=== PATIENT | male | born 1945 | race Caucasian/White ===

== ENCOUNTER → 2017-11-29 | Outpatient (CLI) | payer MEDICARE, OTHER | LOC: PLD 14:36 → LAB SHORT 14:36 | DX: D49.2 Neoplasm of unspecified behavior of bone, soft tissue, and skin (principal) | CPT/HCPCS: 88305 ==

== ENCOUNTER 2019-01-20 07:50 | Inpatient (IN) | payer MEDICARE, OTHER ==
[~2019-01-20] VITALS: Ht 180.3 cm; Wt 133.3 kg
[2019-01-20] MEDS ORDERED: ELIQUIS2.5 MG PO (08:11)
[2019-01-20] MEDS ORDERED: ALBU90OI INH (08:12)
[2019-01-20 08:23] LABS: BASOPHILS ABSOLUTE AUTO 0.03 K/mm3 (0.00-0.23); BASOPHILS PERCENT AUTO 0 % (0-2); EOSINOPHILS ABSOLUTE AUTO 0.09 K/mm3 (0.00-0.68); EOSINOPHILS PERCENT AUTO 1 % (0-6); IMMATURE GRAN ABSOLUTE AUTO 0.04 K/mm3 (0.00-0.10); IMMATURE GRAN PERCENT AUTO 0 % (0-1); LYMPHOCYTES ABSOLUTE AUTO 1.27 K/mm3 (0.84-5.20); LYMPHOCYTES PERCENT AUTO 13 % (21-46); MONOCYTES ABSOLUTE AUTO 0.83 K/mm3 (0.16-1.47); MONOCYTES PERCENT AUTO 9 % (4-13); Mean Corpuscular HGB 28.4 pg (26.0-34.0); Mean Corpuscular HGB Conc 29.8 g/dL (31.5-36.5); Mean Corpuscular Volume 95 fL (80-100); NEUTROPHILS ABSOLUTE AUTO 7.22 K/mm3 (1.96-9.15); NEUTROPHILS PERCENT AUTO 76 % (41-73); Platelet Count 141 K/mm3 (150-400); RDW Coefficient Variation 15.5 % (11.7-14.2); RDW Standard Deviation 54.1 fL (35.1-46.3); Red Blood Cell Count 4.93 M/mm3 (4.30-5.90); White Blood Cell Count 9.48 K/mm3 (4.00-11.30)
[2019-01-20 08:46] LABS: Albumin, Blood 3.5 g/dL (3.4-5.0); Albumin/Globulin Ratio 0.9 (0.8-1.8); Bilirubin, Total 0.8 mg/dL (0.1-1.0); Bun/Creatinine Ratio 14.9 (12.0-20.0); Calcium, Blood 8.4 mg/dL (8.5-10.1); Creatinine, Blood 1.48 mg/dL (0.60-1.20); Globulin, Blood 3.9 g/dL (2.2-4.0); Potassium, Blood 4.3 mmol/L (3.5-5.5); Total Protein, Blood 7.4 g/dL (6.4-8.2)
[2019-01-20 08:54] LABS: Troponin I 0.515 ng/mL (0.000-0.040)
[2019-01-20 09:49] LABS: CHOL/HDL RATIO 4.8; Cholesterol 91 mg/dL (50-200); HDL Cholesterol 19 mg/dL (>39); Low Density Lipoprotein Chol 57 mg/dL (0-110); Triglycerides 73 mg/dL (30-160); Very Low Density Lipoprot Chol 14 mg/dL (6-32)
--- NOTE | 2019-01-20 18:24 | NUR ---
ADMISSION ASSESSMENT ASSUMED CARE OF PT AT 1500. PT ARRIVED IN A STRETCHER. WAS ABLE TO STAND PIVOT INTO BED. PT ORIENTATED TO SELF. HX OF MENTAL RETARDATION ACCORDING TO CAREGIVER AT [facility]. PTS LUNG SHOW EXPIRATORY WHEEING IN L LUNG AND CRACKLES AT THE BASES. C/O SOB. 2L O2. ON TELE, AFIB RATE 115 PER MOLD FILLER [employer]. DISTENDED ABDOMEN WITH GENERAL EDEMA. SEVERE EDEMA BLE WITH WEEPING WOUNDS. PT C/O L LEG PAIN. CAPILLARY REFILL MORE THAN 3 SEC ALL EXTREMITIES. STRONG RADIAL AND PEDAL PULSES. INGUINAL AREA SWOLLEN. PT ON A CONTINUOUS DILTIAZAM DRIP. AND RECVEIVED ANTIBIOTICS. PT SITTING IN BED EATING DINNER. HAS A DRY COUGH. SEEN BY NURSE ASSISTANT. CALL LIGHT IN REACH. WILL MONITOR UNTIL NIGHT NURSE ARRIVES.
[2019-01-20] MEDS ORDERED: Fluocinonide15 GM TOP (19:16)
[2019-01-20] MEDS ORDERED: ACET325 PO (19:16)
[2019-01-21 04:10] LABS: BASOPHILS ABSOLUTE AUTO 0.02 K/mm3 (0.00-0.23); BASOPHILS PERCENT AUTO 0 % (0-2); EOSINOPHILS PERCENT AUTO 1 % (0-6); Hematocrit 44.5 % (37.0-53.0); Hemoglobin 13.1 g/dL (13.5-17.5); IMMATURE GRAN ABSOLUTE AUTO 0.05 K/mm3 (0.00-0.10); IMMATURE GRAN PERCENT AUTO 1 % (0-1); LYMPHOCYTES ABSOLUTE AUTO 1.28 K/mm3 (0.84-5.20); LYMPHOCYTES PERCENT AUTO 13 % (21-46); MONOCYTES ABSOLUTE AUTO 0.98 K/mm3 (0.16-1.47); MONOCYTES PERCENT AUTO 10 % (4-13); Mean Corpuscular HGB 28.1 pg (26.0-34.0); Mean Corpuscular HGB Conc 29.4 g/dL (31.5-36.5); Mean Corpuscular Volume 96 fL (80-100); Mean Platelet Volume 11.2 fL (9.1-12.4); NEUTROPHILS ABSOLUTE AUTO 7.81 K/mm3 (1.96-9.15); NEUTROPHILS PERCENT AUTO 76 % (41-73); Platelet Count 118 K/mm3 (150-400); RDW Coefficient Variation 15.2 % (11.7-14.2); RDW Standard Deviation 53.3 fL (35.1-46.3); Red Blood Cell Count 4.66 M/mm3 (4.30-5.90); White Blood Cell Count 10.24 K/mm3 (4.00-11.30)
[2019-01-21 04:24] LABS: Bun/Creatinine Ratio 15.4 (12.0-20.0); Calcium, Blood 8.3 mg/dL (8.5-10.1); Creatinine, Blood 1.75 mg/dL (0.60-1.20); Potassium, Blood 3.4 mmol/L (3.5-5.5)
--- NOTE | 2019-01-21 07:34 | NUR ---
RECEIVED REPORT AND ASSUMED CARE OF PATIENT. HE IS AWAKE, REPOSITIONED WITH REPORTING RN. BED LOCKED IN LOW POSITION, CALL LIGHT WITHIN EASY REACH.
--- NOTE | 2019-01-21 07:35 | NUR ---
SHIFT SUMMARY PATIENT PLEASENT AND COOPERATIVE THROUGHOUT THE NIGHT BUT APPEARS TO BE SLIGHTLY CONFUSED AT TIMES. PATIENT A POOR HISTORIAN. CARDIZEM RUNNING AT 20 MG/HR PER DR ENGLISH. PATIENT'S HEART RATE IS AFIB IN THE 90'S-105 RANGE PER COMPASS OPERATOR. PATIENT DIURESSING WELL THROUGHOUT THE NIGHT. PATIENT TURNED Q2H LAST NIGHT. PATIENT APPEARED TO NAP ON AND OFF LAST NIGHT. PATIENT CURRENTLY AWAKE AND RESTING IN BED. REPORT GIVEN TO ONCOMING RN.
[2019-01-21 14:30] LABS: Calcium, Blood 8.6 mg/dL (8.5-10.1); Creatinine, Blood 1.76 mg/dL (0.60-1.20); Potassium, Blood 3.4 mmol/L (3.5-5.5)
--- NOTE | 2019-01-21 15:24 | NUR ---
TITRATED CARDIZEM DRIP TO 10 ML/HR. RATE BETWEEN 82-86 PER TELE MONITOR.
--- NOTE | 2019-01-21 16:01 | NUR ---
PATIENT IS ASLEEP, DISCUSSED WITH NURSE ABOUT PROVIDING CARE ON 01/22/19 AND SHE STATES SHE DOES NOT SEE HIM HAVING A PROBLEM WITH IT. STUDENT NURSE WILL ASK THE PATIENT ON 01/22/19 BEFORE CARE IS PROVIDED.
--- NOTE | 2019-01-21 18:32 | NUR ---
PT RESTED OFF AND ON THROUGHOUT THE SHIFT, HE CONTINUES TO HAVE PLEASANT AFFECT AND CAN EXPRESS HIS NEEDS WHEN PROMPTED. CONTINUING TO MONITOR HEART RATE CLOSELY AND TITRATE CARDIZEM APPROPRIATELY, CURRENTLY AT 15 ML/HOUR. PT CONTINUES ON 2 LPM VIA NC. CONTACTED [facility] TODAY AND RECEIVED MESSAGE BACK THIS EVENING THAT PATIENT HAS NEVER USED A CPAP MACHINE, THIS INFORMATION WILL BE PASSED IN REPORT TO ENSURE DR. CERVANTES RECEIVES THE MESSAGE. BED IN LOW, LOCKED POSITION WITH ALARM SET, CALL LIGHT WITHIN EASY REACH. WILL CONTINUE TO MONITOR AND GIVE REPORT TO JOANA VELASQUEZ.
--- NOTE | 2019-01-21 19:37 | NUR ---
PM NOTE. ASSUMED CARE OF PT APROX 1900, PT IS A&O WITH SOME SLIGHT MENTAL HANDICAPS, PT WAS ABLE TO TELL ME HE WAS IN THE [facility] AT [facility], HIS NAME AND BIRTHDAY, PT WAS UNABLE TO TELL ME THE DATE, OR WHO THE PRESIDENT IS. PT IS ABLE TO MAKE HIS NEEDS KNOWN TO SOME DEGREE, PT USES THE URINAL INDEPENDENTLY. PT WAS ADMITTED DUE TO AFIB W/RVR AND IS ON CARDIZEM GTT AT 15. TELE INTACT, AFIB IN THE 90'S-100'S PER TRAVEL COUNSELOR [employer], PT'S BP 114/73, PT HAS 3+ PITTING EDEMA TO HIS BLLE AND IN GENERAL HAS 1+ PITTING EDEMA. PT HAS BLISTERS/OPEN SORES TO HIS BILAT LOWER LEGS FROM THE SWELLING/EDEMA. PT'S L/S CLEAR AND DIM T/O, HE IS CURRENTLY ON 1 L NC AT 95%, PT DOES NOT USE O2 AT HOME, WILL TITRATE TOLERATED. BT PRESENT AND HYPERACTIVE, ABD IS LARGE, AND SLIGHTLY FIRM, BUT NONTENDER TO PALP, PT STATES THIS IS NORMAL FOR HIM. CALL LIGHT IN REACH, BED IS LOCKED AND LOW WILL CONTINUE TO MONITOR.
[2019-01-22 05:12] LABS: BASOPHILS ABSOLUTE AUTO 0.04 K/mm3 (0.00-0.23); BASOPHILS PERCENT AUTO 0 % (0-2); EOSINOPHILS ABSOLUTE AUTO 0.09 K/mm3 (0.00-0.68); EOSINOPHILS PERCENT AUTO 1 % (0-6); Hematocrit 41.2 % (37.0-53.0); Hemoglobin 12.4 g/dL (13.5-17.5); IMMATURE GRAN ABSOLUTE AUTO 0.03 K/mm3 (0.00-0.10); IMMATURE GRAN PERCENT AUTO 0 % (0-1); LYMPHOCYTES ABSOLUTE AUTO 0.89 K/mm3 (0.84-5.20); LYMPHOCYTES PERCENT AUTO 9 % (21-46); MONOCYTES ABSOLUTE AUTO 0.91 K/mm3 (0.16-1.47); MONOCYTES PERCENT AUTO 9 % (4-13); Mean Corpuscular HGB 27.8 pg (26.0-34.0); Mean Corpuscular HGB Conc 30.1 g/dL (31.5-36.5); Mean Platelet Volume 11.9 fL (9.1-12.4); NEUTROPHILS ABSOLUTE AUTO 7.97 K/mm3 (1.96-9.15); NEUTROPHILS PERCENT AUTO 80 % (41-73); Platelet Count 113 K/mm3 (150-400); RDW Coefficient Variation 14.8 % (11.7-14.2); RDW Standard Deviation 50.2 fL (35.1-46.3); Red Blood Cell Count 4.46 M/mm3 (4.30-5.90); White Blood Cell Count 9.93 K/mm3 (4.00-11.30)
[2019-01-22 05:31] LABS: Mean Corpuscular Volume 92 fL (80-100)
[2019-01-22 05:32] LABS: Albumin, Blood 3.1 g/dL (3.4-5.0); Anion Gap 6 mmol/L (6-16); Blood Urea Nitrogen 33 mg/dL (8-24); Bun/Creatinine Ratio 15.9 (12.0-20.0); CO2, Blood 36 mmol/L (21-32); Calcium, Blood 8.2 mg/dL (8.5-10.1); Chloride, Blood 95 mmol/L (98-108); Creatinine, Blood 2.08 mg/dL (0.60-1.20); Glomerular Filtration Rate 33 (60-); Glucose, Blood 103 mg/dL (70-99); Phosphorus, Blood 5.1 mg/dL (2.5-4.9); Sodium, Blood 137 mmol/L (136-145)
--- NOTE | 2019-01-22 06:49 | NUR ---
SHIFT SUMMARY. NO ACUTE CHANGES NOTED. PT WAS ON CARDIZEM GTT AT 15 MOST OF THE NIGHT, PT WAS TURNED DOWN TO 10 AT 0530, PT'S RATE AND BP HAVE REMAINED STABLE. PT HAS USED THE URINAL SEVERAL TIMES T/O THE NIGHT. PT HAS NOT CALLED TO GET UP OUT OF BED. PT'S VS HAVE BEEN STABLE, PT DENIES ANY CHEST PAIN/PRESSURE, N/V OR ABNORMAL SOB. PT HAS BEEN ON 1-2L NC T/O THE NIGHT DUE TO MOMENTS OF APNEA DURING SLEEP THIS RN WITNESSED. PT'S POTASSIUM THIS AM WAS 3.0, PROVIDER WAS CALLED AND ORDERS OBTAINED FOR K-RIDER 40MG. CALL LIGHT IN REACH, BED IS LOCKED AND LOW WILL CONTINUE TO MONITOR.
--- NOTE | 2019-01-22 14:01 | NUR ---
Met pt. in bed resting seems to be weak and slow to respond gave support and offered prayers.
--- NOTE | 2019-01-22 15:46 | NUR ---
HEART RATE SUSTAINING IN THE 80s. CARDIZEM GTT TITRATED DOWN TO 5 ML/HR. WILL CONTINUE TO MONITOR.
--- NOTE | 2019-01-22 17:16 | NUR ---
SHIFT SUMMARY PT IS A&OX3, WITH COGNITIVE DELAYS AND DIFFICULTY WITH CLEAR SPEECH, WHICH LEADS TO SOME AGITATION. PT HAS BEEN PAIN FREE TODAY PT HAS BEEN REPOSITIONED Q2HR WITH MOD ASSIST. PT HAS GENERALIZED EDEMA WHICH IS WEEPING, BLE EDEMA OF 3+, AND WOUNDS TO BL SHINS AND CALF , SO SCD'S ARE LEFT OFF. POWERGLIDE STARTED IN RIGHT ARM.HEELS ARE FLOATED. CALL LIGHT IN REACH, BED IN LOWEST POSITION, PT ORIENTED TO SAFETY PROTOCOL. STILL AWAITING TRANSFER PLAN FOR [facility]
--- NOTE | 2019-01-23 03:09 | NUR ---
ASSUMED CARE OF PATIENT AT APPROXIMATELY 1915 FROM TALON Escalera RN AND ARELI Felipe DISABILITY RATER LYNETTE Escalera ASSISTING IN CARE. PATIENT ALERT AND ORIENTED TO SELF, AND LOCATION; PATIENT CONFUSED AT TIMES. PATIENT HAS BEEN IN BED SINCE SHIFT CHANGE. REPORTED THAT PATIENT TO HAVE CT W/O CONTRAST OF NECK TO WAIST; [facility] [address] AND BACK VIA STRETCHER. PATIENT DENIES PAIN, NUMBNESS, TINGLING, DIZZINES AND NAUSEA. PATIENT DROWSY AT TIMES; SLURRED SPEECH AT TIMES. AFIB ON TELE W/ A RATE OF 80-100'S; CARDIZEM WAS INFUSING AT A RATE OF 5ML/HR; ORDER ON CARDIZEM STATES TO TITRATE DOWN TO A HEART RATE BELOW 100; CARDIZEM STOPPED; OXYGEN SATURATION ABOVE 90% ON 1LPM VIA NC. PATIENT HAS +2-3 IN EXTREMITIES; WEEPING IN DIFFERENT LOCATIONS; WOUNDS; TURNED FREQUENTLY; LINENS CHANGES FREQUENTLY. 400ML OF OUTPUT SO FAR THIS SHIFT; PEES INTO URINAL IN BED. PG S/L; PIV S/L. PATIENT CURRENTLY SLEEPING IN BED; CALL LIGHT IN REACH; BED IN LOWEST POSISTION; BED ALARM ON; WILL CONTINUE TO MONITOR AND ASSESS UNTIL END OF SHIFT.
[2019-01-23 05:27] LABS: BASOPHILS ABSOLUTE AUTO 0.02 K/mm3 (0.00-0.23); BASOPHILS PERCENT AUTO 0 % (0-2); EOSINOPHILS ABSOLUTE AUTO 0.15 K/mm3 (0.00-0.68); EOSINOPHILS PERCENT AUTO 2 % (0-6); Hematocrit 41.2 % (37.0-53.0); Hemoglobin 12.5 g/dL (13.5-17.5); IMMATURE GRAN ABSOLUTE AUTO 0.02 K/mm3 (0.00-0.10); IMMATURE GRAN PERCENT AUTO 0 % (0-1); LYMPHOCYTES ABSOLUTE AUTO 0.97 K/mm3 (0.84-5.20); LYMPHOCYTES PERCENT AUTO 11 % (21-46); MONOCYTES ABSOLUTE AUTO 0.83 K/mm3 (0.16-1.47); MONOCYTES PERCENT AUTO 9 % (4-13); Mean Corpuscular HGB 28.2 pg (26.0-34.0); Mean Corpuscular HGB Conc 30.3 g/dL (31.5-36.5); Mean Corpuscular Volume 93 fL (80-100); Mean Platelet Volume 10.2 fL (9.1-12.4); NEUTROPHILS PERCENT AUTO 78 % (41-73); Platelet Count 118 K/mm3 (150-400); RDW Coefficient Variation 14.6 % (11.7-14.2); RDW Standard Deviation 50.4 fL (35.1-46.3); Red Blood Cell Count 4.43 M/mm3 (4.30-5.90); White Blood Cell Count 8.99 K/mm3 (4.00-11.30)
--- NOTE | 2019-01-23 05:28 | NUR ---
CARDIZEM STARTED AT 5ML/HR FOR HEART RATE AVERAGING 110 AFIB; PATIENT SLEPT ABOUT NINE HOURS LAST NIGHT. VSS. NO OTHER ACUTE CHANGES TO REPORT. WILL CONTINUE TO MONITOR AND ASSESS UNTIL END OF SHIFT.
[2019-01-23 05:40] LABS: Albumin, Blood 3.1 g/dL (3.4-5.0); Anion Gap 4 mmol/L (6-16); Blood Urea Nitrogen 35 mg/dL (8-24); Bun/Creatinine Ratio 18.3 (12.0-20.0); CO2, Blood 37 mmol/L (21-32); Calcium, Blood 8.5 mg/dL (8.5-10.1); Chloride, Blood 95 mmol/L (98-108); Creatinine, Blood 1.91 mg/dL (0.60-1.20); Glomerular Filtration Rate 37 (60-); Glucose, Blood 110 mg/dL (70-99); Phosphorus, Blood 4.2 mg/dL (2.5-4.9); Potassium, Blood 3.5 mmol/L (3.5-5.5); Sodium, Blood 136 mmol/L (136-145)
--- NOTE | 2019-01-23 13:41 | NUR ---
Pt. is in bed weak to respod encouraged pt. and offered prayers.
--- NOTE | 2019-01-23 13:45 | NUR ---
SHIFT NOTE ASSUMED CARE OF PT AT APPROX 0700. VSS AND PT IN NO APPARENT SIGN OF DISTRESS. PT FORGETFUL AT BASELINE BUT SPEAKING CLEARLY AND WITH NON COMPLEX, SHORT SENTENCES HELPS PT UNDERSTAND. PT UP TO TAKE SHOWER TODAY, TOLERATED WELL. NAPPING ON AND OFF THROUGHOUT MORNING. [facility] CONTACTED THIS AM REGARDING BED AVAILABILITY. PER [facility], NO BED AVAILABLE AT THIS TIME BUT PT REMAINS ON LIST AND WE WILL BE NOTIFIED WHEN BED IS AVAILABLE. DC CARDIZEM 5MG DRIP AT APPROX 1130 AND BRIDGE TO METOPROLOL PER DR. CERVANTES. PT TOLERATING BRIDGE WELL WITH HR IN 80'S ON TELE. PT DEPENDENT EDEMA IMPROVING WITH IV LASIX TX. WILL CONTINUE TO MONITOR AND UPDATE APPROPRIATE. SEE SHIFT ASSESSMENT FOR DETAILED ASSESSMENT.
--- NOTE | 2019-01-23 17:08 | NUR ---
SHIFT SUMMARY VSS THIS SHIFT. PT NAPPING THROUGHOUT SHIFT, STATES COMFORTABLE AND STATES "I WANT TO CATCH UP ON SLEEP". PT STABLE ON 1L NC, MAINTAINING OXYGEN SATS >90. PT TOLERATING BRIDGE FROM CARDIZEM TO METOPROLOL SUSTAINING HR IN 80'S THIS SHIFT. PT TOLERATING Q2 TURNS. NO ACUTE CHANGES, LASIX GIVEN AND 650 ML OUT THIS SHIFT. RONALD POWERGLID PATENT. LAC PATENT. STILL AWAITING BED AVAILABILITY AT [facility]. WILL CONTINUE TO MONIOR AND UPDATE APPROPRIATE.
--- NOTE | 2019-01-23 22:26 | NUR ---
ASSUMED CARE OF PATIENT AT APPROXIMATELY 1900 FROM YESSENIA Swanson RN. PATIENT ALERT AND ORIENTED TO SELF, AND LOCATION; PATIENT CONFUSED AT TIMES. PATIENT HAS BEEN IN BED SINCE SHIFT CHANGE. PATIENT WENT TO CT BEFORE 1999 VIA PCU STRETCHER; RETURNED SHORTLY AFTER 1999; LINEN CHANGE D/T WEEPING OF BLE/EDEMA. PATIENT DENIES PAIN, NUMBNESS, TINGLING, DIZZINES AND NAUSEA. PATIENT DROWSY AT TIMES; SLURRED SPEECH AT TIMES. AFIB ON TELE W/ A RATE OF 80-100'S; OXYGEN SATURATION ABOVE 90% ON 1LPM VIA NC. PATIENT HAS +2-3 IN EXTREMITIES; WEEPING IN DIFFERENT LOCATIONS; WOUNDS DOCUMENTED; PEES INTO URINAL IN BED. PG S/L; PIV S/L. PATIENT CURRENTLY SLEEPING IN BED; CALL LIGHT IN REACH; BED IN LOWEST POSISTION; BED ALARM ON; WILL CONTINUE TO MONITOR AND ASSESS UNTIL END OF SHIFT.
[2019-01-24 04:01] LABS: BASOPHILS ABSOLUTE AUTO 0.03 K/mm3 (0.00-0.23); BASOPHILS PERCENT AUTO 0 % (0-2); EOSINOPHILS ABSOLUTE AUTO 0.17 K/mm3 (0.00-0.68); EOSINOPHILS PERCENT AUTO 2 % (0-6); Hematocrit 38.9 % (37.0-53.0); Hemoglobin 11.9 g/dL (13.5-17.5); IMMATURE GRAN ABSOLUTE AUTO 0.03 K/mm3 (0.00-0.10); IMMATURE GRAN PERCENT AUTO 0 % (0-1); LYMPHOCYTES ABSOLUTE AUTO 0.99 K/mm3 (0.84-5.20); LYMPHOCYTES PERCENT AUTO 14 % (21-46); MONOCYTES ABSOLUTE AUTO 0.67 K/mm3 (0.16-1.47); MONOCYTES PERCENT AUTO 9 % (4-13); Mean Corpuscular HGB 28.3 pg (26.0-34.0); Mean Corpuscular HGB Conc 30.6 g/dL (31.5-36.5); Mean Corpuscular Volume 93 fL (80-100); Mean Platelet Volume 10.8 fL (9.1-12.4); NEUTROPHILS ABSOLUTE AUTO 5.39 K/mm3 (1.96-9.15); NEUTROPHILS PERCENT AUTO 74 % (41-73); Platelet Count 110 K/mm3 (150-400); RDW Coefficient Variation 14.6 % (11.7-14.2); RDW Standard Deviation 49.7 fL (35.1-46.3); White Blood Cell Count 7.28 K/mm3 (4.00-11.30)
[2019-01-24 04:14] LABS: Albumin, Blood 2.8 g/dL (3.4-5.0); Anion Gap 6 mmol/L (6-16); Blood Urea Nitrogen 39 mg/dL (8-24); Bun/Creatinine Ratio 20.3 (12.0-20.0); CO2, Blood 37 mmol/L (21-32); Calcium, Blood 8.4 mg/dL (8.5-10.1); Chloride, Blood 95 mmol/L (98-108); Creatinine, Blood 1.92 mg/dL (0.60-1.20); Glomerular Filtration Rate 36 (60-); Glucose, Blood 98 mg/dL (70-99); Phosphorus, Blood 3.1 mg/dL (2.5-4.9); Potassium, Blood 3.3 mmol/L (3.5-5.5); Sodium, Blood 138 mmol/L (136-145)
--- NOTE | 2019-01-24 09:36 | NUR ---
SHIFT NOTE ASSUMED CARE OF PT AT APPROS 0710. PT VSS IN NO APPARENT SIGN OF DISTRESS. PT SLEEPING UPON ARRIVAL AND CONTINUES TO NAP ON AND OFF THROUGHOUT MORNING. PT EASILY ARROUSABLE, OPENS EYES TO VOICE AND RESPONDS APPROPRIATELY. CALL LIGHT WITHIN REACH AND PT STATES THAT HE WILL CALL. PT REPOSITIONED AND TOLERATED WELL. PT SPEECH IS SLURRED AND HE IS SLOW TO RESPOND WHICH IS BASELINE PER REPORTS. STILL AWAITING BED PLACEMENT AT [facility] AND WILL TRANSFER VIA COBRA WHEN BED IS AVAILABLE. POWERGLIDE IN RONALD, FLUSHES WELL AND WITHOUT S/SX OF INFECTION, PHLEBITIS, OR INFILTRATION. PT TOLERATING METOPROLOL BRIDGE WITH HR SUSTAINING IN 80-90 AND STABLE BP IN LOW 110'S. WILL CONTINUE TO MONITOR AND UPDATE NEEDED. SEE SHIFT ASSESSMENT FOR DETAILED ASSESSMENT.
--- NOTE | 2019-01-24 12:00 | NUR ---
CALL FROM [facility] TRANSFER RN REQUESTING AN UPDATE PN PT. UPDATE GIVEN REGARDING DC OF CARDIZEM DRIP AND TOLERATING BRIDGE TO METOPROLOL WITH HR SUSTAINING IN 80-90'S. NO FURTHER QUESTIONS FROM TRANSFER RN. NO BED AVAILABLE AT THIS TIME. WILL CONTINUE TO MONITOR
--- NOTE | 2019-01-24 18:36 | NUR ---
SHIFT SUMMARY NO ACUTE CHANGES THIS SHIFT. VSS. PT IN NO APPARENT SIGN OF DISTRESS. STILL AWAITING BED AVAILABILITY AT [facility]. PT DENIES CHEST PAIN/PRESSURE. PT DENIES GENERAL PAIN. PT RESTING COMFORTABLY THIS SHIFT. REMAINS A FIB WITH A CONTROLLED RATE OF 90'S ON 25MG METOPROLOL. WILL CONTINUE TO MONITOR AND HANDOVER TO EVA LOMAS FOR NOC SHIFT.
--- NOTE | 2019-01-24 19:45 | NUR ---
ASSUMED CARE PT LEEPING IN ROOM COMFORTABLY. PER DAY SHIFT PT HAD NO ACUTE CHANGES IN STATUS T/O DAY. PT IS AWAITING BED AT [facility] FOR COBRA TRANSFER D/T VEGITATION FOUND ON HEART VALVES. PER DAY SHIFT [facility] CALLED NEAR SHIFT CHANGE TO TALK W/ PROVIDER ABOUT STATUS. PT POSSIBLY NO LONGER NEEDING TRANSFER D/T NEGATIVE BLOOD CULTURES. WILL FOLLOW UP WITH PROVIDER IN AM. RESP EVEN UNLBAORED ON 1.5L O2 VIA NC, W/ SATS >92%. DENIES PAIN. PT USES URINAL AT BEDSIDE AND CALLS APPROPRIATELY. Q2HR TURNS PERFOFMED. CALL LIGHT IN REACH.
[2019-01-25 03:49] LABS: BASOPHILS ABSOLUTE AUTO 0.02 K/mm3 (0.00-0.23); BASOPHILS PERCENT AUTO 0 % (0-2); EOSINOPHILS ABSOLUTE AUTO 0.18 K/mm3 (0.00-0.68); EOSINOPHILS PERCENT AUTO 2 % (0-6); Hematocrit 40.5 % (37.0-53.0); Hemoglobin 12.3 g/dL (13.5-17.5); IMMATURE GRAN ABSOLUTE AUTO 0.02 K/mm3 (0.00-0.10); IMMATURE GRAN PERCENT AUTO 0 % (0-1); LYMPHOCYTES ABSOLUTE AUTO 1.13 K/mm3 (0.84-5.20); LYMPHOCYTES PERCENT AUTO 15 % (21-46); MONOCYTES ABSOLUTE AUTO 0.67 K/mm3 (0.16-1.47); MONOCYTES PERCENT AUTO 9 % (4-13); Mean Corpuscular HGB Conc 30.4 g/dL (31.5-36.5); Mean Corpuscular Volume 92 fL (80-100); Mean Platelet Volume 10.5 fL (9.1-12.4); NEUTROPHILS ABSOLUTE AUTO 5.57 K/mm3 (1.96-9.15); NEUTROPHILS PERCENT AUTO 73 % (41-73); Platelet Count 118 K/mm3 (150-400); RDW Coefficient Variation 14.6 % (11.7-14.2); RDW Standard Deviation 49.6 fL (35.1-46.3); Red Blood Cell Count 4.39 M/mm3 (4.30-5.90); White Blood Cell Count 7.59 K/mm3 (4.00-11.30)
[2019-01-25 04:04] LABS: Albumin, Blood 2.9 g/dL (3.4-5.0); Anion Gap 4 mmol/L (6-16); Blood Urea Nitrogen 39 mg/dL (8-24); Bun/Creatinine Ratio 24.2 (12.0-20.0); CO2, Blood 38 mmol/L (21-32); Calcium, Blood 8.6 mg/dL (8.5-10.1); Chloride, Blood 95 mmol/L (98-108); Creatinine, Blood 1.61 mg/dL (0.60-1.20); Glomerular Filtration Rate 45 (60-); Glucose, Blood 99 mg/dL (70-99); Magnesium, Blood 2.3 mg/dL (1.6-2.4); Phosphorus, Blood 2.8 mg/dL (2.5-4.9); Potassium, Blood 3.5 mmol/L (3.5-5.5); Sodium, Blood 137 mmol/L (136-145)
--- NOTE | 2019-01-25 05:53 | NUR ---
SHIFT SUMMARY PT SLEEPING IN ROOM COMFORTABLY. NO ACUTE CHANGES T/O SHIFT. PT SLEPT WELL, DENIED ANY NEEDS T/O NIGHT. PT USED URINAL IN BED AND CALLED APPRORIATELY FOR URINAL TO BE EMPTIED. RESP EVEN UNLBAORED ON 1.5L O2, WL SATS >92%. DENIES SOB OR CP. PT WAS TURNED Q2HRS. CALL LIGHT IS IN REACH. WILL CONT TO MONITOR UNTIL SHIFT CHANGE.
--- NOTE | 2019-01-25 16:16 | NUR ---
TRANSFER OF CARE: CARE TRANSFERRED TO EVA RESENDEZ. PT ALERT; ORIENTED TO SELF AND LOCATION; HX DEVELOPMENTAL DELAY; COOPERATIVE WITH CARE. AWAITING XFR TO [facility]. REPORT GIVEN TO ONCOMING RN.
--- NOTE | 2019-01-25 18:15 | NUR ---
NURSING PCU DAYSHIFT SUMMARY: Assumed care of pt at approx 1600. Speech is slurred though pt is able to express needs. Pleasant, cooperative w/care. Respiratory and cardiac status stable. Pt repositioned, linens changed. Call light in reach, cont to monitor until rpt is given to NOC RN.
--- NOTE | 2019-01-25 19:40 | NUR ---
ASSUMED CARE PT SLEEPING IN ROOM COMFORTABLY. PER DAY SHIFT PT HAD NO ACUTE CHANGES IN STATUS. PER PROVIDER AND CONSULTS PT NO LONGER REQUIRING TRANSPORT TO [facility]. RESP EVEN UNLABORED ON 2L NC W/ SATS >92%. DENIES PAIN. PT USES URINAL IN BED AND CALLS FOR EMPTYING. CALL LIGHT W/IN REACH.
[2019-01-26 03:51] LABS: BASOPHILS ABSOLUTE AUTO 0.02 K/mm3 (0.00-0.23); BASOPHILS PERCENT AUTO 0 % (0-2); EOSINOPHILS ABSOLUTE AUTO 0.19 K/mm3 (0.00-0.68); EOSINOPHILS PERCENT AUTO 3 % (0-6); Hematocrit 40.6 % (37.0-53.0); Hemoglobin 12.2 g/dL (13.5-17.5); IMMATURE GRAN ABSOLUTE AUTO 0.02 K/mm3 (0.00-0.10); IMMATURE GRAN PERCENT AUTO 0 % (0-1); LYMPHOCYTES PERCENT AUTO 13 % (21-46); MONOCYTES ABSOLUTE AUTO 0.64 K/mm3 (0.16-1.47); MONOCYTES PERCENT AUTO 9 % (4-13); Mean Corpuscular HGB 28.4 pg (26.0-34.0); Mean Corpuscular Volume 94 fL (80-100); Mean Platelet Volume 10.8 fL (9.1-12.4); NEUTROPHILS ABSOLUTE AUTO 5.32 K/mm3 (1.96-9.15); NEUTROPHILS PERCENT AUTO 75 % (41-73); Platelet Count 97 K/mm3 (150-400); RDW Coefficient Variation 14.6 % (11.7-14.2); RDW Standard Deviation 49.8 fL (35.1-46.3); White Blood Cell Count 7.09 K/mm3 (4.00-11.30)
[2019-01-26 04:04] LABS: Albumin, Blood 2.8 g/dL (3.4-5.0); Anion Gap 4 mmol/L (6-16); Blood Urea Nitrogen 38 mg/dL (8-24); Bun/Creatinine Ratio 26.2 (12.0-20.0); CO2, Blood 39 mmol/L (21-32); Calcium, Blood 8.3 mg/dL (8.5-10.1); Chloride, Blood 96 mmol/L (98-108); Creatinine, Blood 1.45 mg/dL (0.60-1.20); Glomerular Filtration Rate 50 (60-); Glucose, Blood 97 mg/dL (70-99); Phosphorus, Blood 2.9 mg/dL (2.5-4.9); Potassium, Blood 3.6 mmol/L (3.5-5.5); Sodium, Blood 139 mmol/L (136-145)
--- NOTE | 2019-01-26 06:20 | NUR ---
SHIFT SUMMARY PT SLEEPING IN ROOM COMFORTABLY AT THIS TIME. NO ACUTE CHANGES IN STATUS OVERNIGHT. PT WAS TURNED Q2 HRS. RESP EVEN UNLBAORED ON 1.5L O2 VIA NC W/ SATS >92%. DENIES ANY PAIN. PT USED URINAL AT BEDSIDE T/O NIGHT. LINEN CHANGED THIS AM, SKIN CARE PROVIDED. DENIES OTHER NEEDS. CALL LIGHT IN REACH.
--- NOTE | 2019-01-26 08:18 | NUR ---
RECEIVED REPORT AND ASSUMED CARE OF PATIENT. HE IS UP TO EAT BREAKFAST AND WHEN ASKED HOW HE IS FEELING HE STATES, "I FEEL GOOD, MAYBE I CAN GET UP AND WALK." WILL ASSIST PATIENT IN SITTING UP TO CHAIR AFTER BREAKFAST. BED IN LOW POSITION, ALARM SET, CALL LIGHT WITHIN EASY REACH.
--- NOTE | 2019-01-26 17:40 | NUR ---
PT SETTLED INTO ROOM. AOX3 AND COOPERATIVE OF CARE. PT STATES HE FEELS FUNNY WHEN ASKED IF HE FELT SICK HE IS NOT SURE. WILL CONTINUE TO MONITOR. PT HAS DINNER, BUT IS NOT ACTING INTERESTED AT THIS TIME. OREINTED TO ROOM AND REMOTE IN REACH.
--- NOTE | 2019-01-26 18:51 | NUR ---
GAVE REPORT TO MEDICAL FLOOR RN TO TRANSFER TO ROOM 335. PT HAD A GOOD DAY TODAY, HE WORKED WITH PT AND WAS UP AND WALKING WITH FWW. PT SAT IN CHAIR FOR BETTER PART OF THE AFTERNOON AND HAD A NICE BATH. HIS AFFECT WAS PLEASANT AND WHILE HIS RESPONSES ARE SLOW, HE IS ABLE TO EXPRESS HIS NEEDS APPROPRIATELY. PT TITRATED OFF OF O2 THIS MORNING, HE HAS CONTINUE TO HAVE O2 SAT >92% AND HAS NOT HAD ANY TROUBLE WITH BREATHING. POC IS TO CONTINUE TO MONITOR AND WORK WITH PT TO D/C BACK TO [facility]. PT TRANSFERRED WITH PERSONAL BELONGINGS AND MEAL TRAY.
--- NOTE | 2019-01-27 06:04 | NUR ---
VSS, AFEBRILE, A/O, CALM, COOPERATIVE, SLEPT WELL DURING THIS SHIFT, NO COMPLAINTS. NO SIGNIFICANT CHANGES NOTED. WILL REPORT TO ON-COMING SHIFT.
[2019-01-27 08:11] LABS: Bun/Creatinine Ratio 27.1 (12.0-20.0); Calcium, Blood 8.6 mg/dL (8.5-10.1); Creatinine, Blood 1.33 mg/dL (0.60-1.20); Potassium, Blood 3.8 mmol/L (3.5-5.5)
[2019-01-27 14:06] LABS: Q FEVER PHASE I Negative (Neg:<1:16); Q FEVER PHASE II Negative (Neg:<1:16)
--- NOTE | 2019-01-27 17:07 | NUR ---
Shift Summary A/O x2, cooperative with care and no signs of distress. VSS. Took naps during the day. No c/o of pain. Up in chair for lunch today, patient tolerated transfering to chair well. No acute changes this shift. Will continue to monitor until report given to on-coming nurse.
--- NOTE | 2019-01-27 18:24 | NUR ---
STUDENT NURSE CARING FOR PT TODAY. PLEASE REFER TO STUDENT NOTES FOR SHIFT SUMMARY.
--- NOTE | 2019-01-28 03:12 | NUR ---
SHIFT SUMMARY PT SLEEPING, RESTING QUIETLY DURING SHIFT REPORT. PT WOKE EASILY FOR CARE AND HX MEDS. SPEECH IS DIFFICULT TO UNDERSTAND. PER REPORT, PT IS DEVELOPMENTALLY DELAYED AND LIVES AT [facility]. PT IS CO-OP WITH CARE. ATTEMPTED TO USE URINAL IN BED ON HIS OWN; COMPLETE LINEN AND GOWN CHANGE NEEDED, PT SPILLED URINE. PT IS VERY EDEMATOUS; SKIN IS SWOLLEN AND TIGHT. HX OF CHF; LASIX GIVEN AT HS PER EMAR. ANTERIOR BLE'S VERY DRK WITH DRY PEELING SKIN. NO C/O. DENIED NEEDS TO PRESENT. POSSIBLE D/C TODAY.
[2019-01-28 05:45] LABS: Hematocrit 40.4 % (37.0-53.0); Hemoglobin 12.3 g/dL (13.5-17.5)
[2019-01-28 06:01] LABS: Albumin, Blood 2.9 g/dL (3.4-5.0); Anion Gap 4 mmol/L (6-16); Blood Urea Nitrogen 34 mg/dL (8-24); CO2, Blood 39 mmol/L (21-32); Calcium, Blood 8.5 mg/dL (8.5-10.1); Chloride, Blood 98 mmol/L (98-108); Creatinine, Blood 1.31 mg/dL (0.60-1.20); Glomerular Filtration Rate 57 (60-); Glucose, Blood 95 mg/dL (70-99); Phosphorus, Blood 2.3 mg/dL (2.5-4.9); Potassium, Blood 3.9 mmol/L (3.5-5.5); Sodium, Blood 141 mmol/L (136-145)
[2019-01-28 10:07] LABS: B. HENSELAE IGG Negative titer (Neg:<1:320); B. HENSELAE IGM Negative titer (Neg:<1:100); B. QUINTANA IGG Negative titer (Neg:<1:320); B. QUINTANA IGM Negative titer (Neg:<1:100)
--- NOTE | 2019-01-28 17:53 | NUR ---
Pateint consent given at 1645 on 01/28/19 for nursing attendant to care for him on 01/29/19 from 0630 to 1200.
--- NOTE | 2019-01-28 18:00 | NUR ---
SHIFT SUMMARY THE PATIENT PRESENTED THIS AM A&O TO SELF AND TO SOME SURROUNDINGS, LUNG SOUNDS WERE CLEAR, BUT DIMINISHED AT THE BASES ANND WITH VITALS WNL. THE PATIENT WORKED WITH P/T THIS SHIFT AND HAS BEEN UP TO HIS CHAIR SINCE 1300. THE PATIENT HAS BEEN CONTENT TO BE THERE. THE PATIENT IS EATING HIS DINNER AT THIS TIME, WILL CONTINUE TO MONITOR.
--- NOTE | 2019-01-29 05:17 | NUR ---
73 Y/O MALE RESTED QUIETLY ALL EVENING. PT DENIES PAIN OR NAUSEA. PT ABLE TO FOLLOW ALL SIMPLE VERBL COMMANDS AND COMMUNICATED ALL NEEDS WITH ONE TO TWO WORDS. PTS BED ALARM APPLIED, BED LOW POSITION, CALL LIGHT AT SIDE.
[2019-01-29] MEDS ORDERED: BUME2 PO (12:41)
[2019-01-29] MEDS ORDERED: LISI5 PO (12:41)
[2019-01-29] MEDS ORDERED: METO25ER PO (12:42)
[2019-01-29] MEDS ORDERED: Pedi-Dri 100,0060 GM TOP (12:45)
[2019-01-29] MEDS ORDERED: Micro-K10 MEQ PO (12:46)
--- NOTE | 2019-01-29 18:06 | NUR ---
SHIFT SUMMARY THE PATIENT PRESENTED THIS SHIFT A&O TO SELF, WITH VITALS WNL AND WITH LUNGS SOUNDS THAT WERE CLEAR, BUT DIMINISHED. THE PATIENT HAS BEEN UP TO HIS CHAIR TWICE FOR LUNCH AND DINNER. THE PATIENT WAS TO BE DISCHARGED TODAY, BUT THE HOME WHERE WAS GOING NEEDED TO COME A EVALUATE HIM FIRST. THE PATIENT HAS NO IV ACCESS, PER HIS DOCTOR. THE PATIENT IS EATING DINNER AT THIS TIME, WILL CONTINUE TO MONITOR.
--- NOTE | 2019-01-30 07:20 | NUR ---
SHIFT SUMMARY PT DEVELOPMENTALLY DELAYED. CALM COOPERATIVE. USING URINAL C ASSISTANCE. CALLING APPROPRIATELY. HE WAS ABLE TO SLEEP THROUGH NIGHT. CALL LIGHT IN REACH.
--- NOTE | 2019-01-30 15:02 | NUR ---
Pt. is in bed resting ,he reports doing fine and may go home today or yancy encouraged pt and prayed fgor him.
--- NOTE | 2019-01-30 16:40 | NUR ---
DISCHARGE PATIENT DISCHARGED BACK TO [facility]. [facility] PROVIDER MET WITH PATIENT THIS MORNING TO REASSESS. PACKET GIVEN TO WHEELCHAIR PIERCING MILL OPERATOR.
== END 2019-01-30 16:40 | disposition home or self-care (01) | DRG 871 ==
LOC: DELPENDDIS → ER 07:50 → ERHOLD 09:15 → PCU 09:15 → MEDS 01-26 17:23 → ENPENDDIS 01-29 11:33 → MEDS 01-30 16:40
PROVIDERS: Emergency Medicine; Internal Medicine; Internal Medicine Cardiovascular Disease; Internal Medicine Infectious Disease; ADMIT Family Medicine
DX: A41.9 Sepsis, unspecified organism (principal); I21.A1 Myocardial infarction type 2; J96.01 Acute respiratory failure with hypoxia; I50.31 Acute diastolic (congestive) heart failure; I33.0 Acute and subacute infective endocarditis; R65.21 Severe sepsis with septic shock; L03.116 Cellulitis of left lower limb; N17.9 Acute kidney failure, unspecified; I13.0 Hypertensive heart and chronic kidney disease with heart failure and stage 1 through stage 4 chronic kidney disease, or unspecified chronic kidney disease; E66.01 Morbid (severe) obesity due to excess calories; N18.3 Chronic kidney disease, stage 3 (moderate); Z68.38 Body mass index [BMI] 38.0-38.9, adult; D69.6 Thrombocytopenia, unspecified; E87.6 Hypokalemia; T50.2X5A Adverse effect of carbonic-anhydrase inhibitors, benzothiadiazides and other diuretics, initial encounter; Y92.239 Unspecified place in hospital as the place of occurrence of the external cause; R45.1 Restlessness and agitation; R26.9 Unspecified abnormalities of gait and mobility
CPT/HCPCS: 36415; 70450; 71046; 71250; 74176; 80048; 80053; 80061; 80069; 83605; 83735; 83880; 84484; 85014; 85018; 85025; 86611; 86638; 87449; 93005; 93010; 93306; 94640; 94760; 94761; 96365; 96366; 96375; 96376; 97110; 97116; 97162; 97530; 99285-25; C1751; J0690; J1940; J3370; J3480; J7050

== ENCOUNTER 2019-02-11 11:03 | Inpatient (IN) | payer MEDICARE, OTHER ==
[~2019-02-11] VITALS: Ht 177.8 cm; Wt 138.6 kg
[~2019-02-11 11:03] MED LIST: ACET325 PO; ALBU90OI INH; BUME2 PO; ELIQUIS2.5 MG PO; Fluocinonide15 GM TOP; LISI5 PO; Pedi-Dri 100,0060 GM TOP
[2019-02-11 11:56] LABS: BASOPHILS ABSOLUTE AUTO 0.03 K/mm3 (0.00-0.23); BASOPHILS PERCENT AUTO 0 % (0-2); EOSINOPHILS ABSOLUTE AUTO 0.09 K/mm3 (0.00-0.68); EOSINOPHILS PERCENT AUTO 1 % (0-6); Hematocrit 42.9 % (37.0-53.0); IMMATURE GRAN ABSOLUTE AUTO 0.03 K/mm3 (0.00-0.10); IMMATURE GRAN PERCENT AUTO 0 % (0-1); LYMPHOCYTES ABSOLUTE AUTO 0.97 K/mm3 (0.84-5.20); LYMPHOCYTES PERCENT AUTO 13 % (21-46); MONOCYTES ABSOLUTE AUTO 0.71 K/mm3 (0.16-1.47); MONOCYTES PERCENT AUTO 9 % (4-13); Mean Corpuscular HGB 28.6 pg (26.0-34.0); Mean Corpuscular HGB Conc 30.3 g/dL (31.5-36.5); Mean Corpuscular Volume 94 fL (80-100); Mean Platelet Volume 10.7 fL (9.1-12.4); NEUTROPHILS ABSOLUTE AUTO 5.78 K/mm3 (1.96-9.15); NEUTROPHILS PERCENT AUTO 76 % (41-73); Platelet Count 190 K/mm3 (150-400); RDW Coefficient Variation 15.1 % (11.7-14.2); RDW Standard Deviation 52.6 fL (35.1-46.3); Red Blood Cell Count 4.55 M/mm3 (4.30-5.90); White Blood Cell Count 7.61 K/mm3 (4.00-11.30)
[2019-02-11 12:19] LABS: Albumin, Blood 3.3 g/dL (3.4-5.0); Albumin/Globulin Ratio 0.9 (0.8-1.8); Bilirubin, Total 0.5 mg/dL (0.1-1.0); Bun/Creatinine Ratio 20.3 (12.0-20.0); Calcium, Blood 8.3 mg/dL (8.5-10.1); Creatinine, Blood 2.02 mg/dL (0.60-1.20); Globulin, Blood 3.7 g/dL (2.2-4.0); Potassium, Blood 4.3 mmol/L (3.5-5.5); Troponin I 0.231 ng/mL (0.000-0.040)
[2019-02-11] MEDS ORDERED: METO25ER PO (14:30)
[2019-02-11] MEDS ORDERED: Micro-K10 MEQ PO (14:30)
--- NOTE | 2019-02-11 19:00 | NUR ---
PT ARRIVED TO THE MEDICAL FLOOR FROM THE ER VIA STRETCHER AROUND 1630, ALERT, ORIENTED TO SELF AND PLACE, THE PT STATED THAT HE WAS UNABLE TO STAND AND THAT HE IS CHAIR BOUND AT BASELINE, THE PT DENIED ANY PAIN AT THIS TIME AND APPEARS TO BE BREATHING EASILY ON RA AT THIS TIME, THE PT WAS ORIENTED TO THE ROOM CALL SYTEM AND LAYOUT, PT HAS A LARGE BLISTER ON HIS LEFT LEG, AND REDNESS ON THE RIGHT, PICTURES WERE TAKEN AND PLACED IN THE CHART, CALL LIGHT IN REACH
--- NOTE | 2019-02-11 22:45 | NUR ---
CALLED REGARDING BP OF 83/54 WITH A RECHECK OF 88/47, DR GOFF EVAL AND DECIDED ON COURSE OF ACTION.
--- NOTE | 2019-02-11 22:57 | NUR ---
2035 PT REPORTS SOB THAT INCREASES WITH EXERTION, ON RA AT 92%. BP IS 83/54 WITH A RECHECK OF 88/47, PT REPORTS LIGHT HEADED. WILL CALL DR WORLEY BP. PT HAS REDDENED AREAS ON BILAT FRONT OF SHINS. NO OTHER APPARENT SIGNS OF DISTRESS. CALL LIGHT IS IN REACH.
--- NOTE | 2019-02-12 02:57 | NUR ---
02/11/19 2300 PT LYING IN BED, EYES CLOSED, APPEARS TO BE RESTING. BREATHING IS EVEN, UNLABORED. NO APPARENT SIGNS OF DISTRESS. CALL LIGHT IS IN REACH.
--- NOTE | 2019-02-12 02:58 | NUR ---
0120 MIDRODINE GIVEN, DIG PIGGY BACK STARTED, WILL MONITOR BP AND HR. NO APPARENT SIGNS OF DISTRESS. PT DENIES NEED FOR ANYTHING CALL LIGHT IS IN REACH.
--- NOTE | 2019-02-12 04:24 | NUR ---
PT LYING IN BED, EYES CLOSED, APPEARS TO BE RESTING. WAKES EASILY TO VERBAL STIMULI. NO APPARENT SIGNS OF DISTRESS. CALL LIGHT IS IN REACH.
--- NOTE | 2019-02-12 04:25 | NUR ---
PT IS AAO X 4, REPORTS SOB THAT INCREASES WITH EXERTION, ON RA AT 92%. BP AT HS LOW AT 83/54, 88/47, DR CALLED, BP RECHECK PER DR AT 0000 78/45, 80/43. GAVE MIDRODINE AND DIG PB. BP AFTER WAS 102/68. PT HAD REDNESS ON FRONT OF SHINS BILATERALLY.
--- NOTE | 2019-02-12 05:44 | NUR ---
PT'S BP IS LOW AT 75/48, 81/57, HR IS 70. SENT PHARMACY REQUEST FOR THE 0630 DIGOXIN IVPB, WILL GIVE TO PT WHEN IT ARRIVES. PT LYING IN BED, AWAKE, DRINKING COFFEE. DENIES ANY DISCOMFORT AT THIS TIME. NO OTHER APPARENT SIGNS OF DISTRESS. CALL LIGHT IS IN REACH. NO OTHER CHANGES THIS SHIFT.
[2019-02-12 06:19] LABS: Bun/Creatinine Ratio 20.8 (12.0-20.0); Calcium, Blood 8.5 mg/dL (8.5-10.1); Creatinine, Blood 1.92 mg/dL (0.60-1.20)
--- NOTE | 2019-02-12 19:30 | NUR ---
SHIFT SUMMARY PT UP TO CHAIR AT LUNCHTIME AND TOLERATED WITH NO PROBLEM BUT DID HAVE SOB WITH EXERTION THAT SELF RESOLVED. INCONTINENT AT TIMES. FEEDS SELF WITH NO PROBLEM. ONLY KNEW THE MONTH THIS MORNING AND DIDN'T KNOW WHERE HE WAS. FOUND AN OPSITE ON L CHEST WALL WITH WHAT APPEARED TO BE THICK CREAM COLORED CREAM. REMOVED AND SITE CLEANSED. NO WOUND NOTED. BLOOD PRESSURE HAS COME UP SINCE REMOVED AT LUNCHTIME.
[2019-02-13 05:49] LABS: Bun/Creatinine Ratio 20.6 (12.0-20.0); Calcium, Blood 8.7 mg/dL (8.5-10.1); Creatinine, Blood 1.8 mg/dL (0.60-1.20); Potassium, Blood 3.9 mmol/L (3.5-5.5)
--- NOTE | 2019-02-13 06:40 | NUR ---
SHIFT SUMMARY PT ORIENTED TO SELF AND MONTH. HAS BEEN INCONT OF URINE. TELE SHOWED A FIB @ 102 PER MAINTENANCE PIPEFITTER. BP LOW SIDE THIS AM AT 95/74 ASYMPTOMATIC. HAS NOT GOT OOB THIS SHIFT. BELLY AND THIGHS TIGHT WITH SWELLING. R ARM AND LEGS ELEVATED ON PILLOWS. HE WAS ABLE TO SLEEP T/O NIGHT. CALL LIGHT IN REACH.
--- NOTE | 2019-02-13 07:45 | NUR ---
Student Nurse is assuming care for pt.
--- NOTE | 2019-02-13 08:21 | NUR ---
Did base assessment of pt while doing linen change. Pt has bilateral red/blue ecchymosis on the anterior portion of the lower leg.
--- NOTE | 2019-02-13 08:29 | NUR ---
Pt's legs are very swollen with +3 pitting edema. Large ecchymosis bilaterially on left lower legs with some scabbing present. Abdomen of pt very swollen and full.
--- NOTE | 2019-02-13 08:37 | NUR ---
Pt's eyes PERRLA.
--- NOTE | 2019-02-13 14:12 | NUR ---
Met pt lying in bed resting he reports of slow healing encouraged and provided pt. with both spiriyaul and emotional support and prayers.
--- NOTE | 2019-02-13 18:42 | NUR ---
SHIFT SUMMARY: PT SLEPT OFF AND ON THROUGH OUT THE SHIFT. ALERT TO PERSON/PLACE BUT DOES NOT REMEMBER DATE/TIME AND IS SLUGGISH TO RESPOND. PT SLURS WORDS. BILATERAL ECCHYMOSIS ON RAY WITH SKALY/PEELING/DRY SKIN THROUGHOUT BODY. +2 PITTING EDEMA NOTED ON BOTH UPPER AND LOWER EXTREMITIES THAT ARE NONE PAINFUL. PT RECIEVED FIRST DOSE OF LASIX @ 1047AM AND WAS CONSISTANTLY URINATING THROUGHOUT THE DAY USING A URINAL. PT DID REQUIRE A NEW IV START DUE TO LEAKAGE FROM THE PREVIOUS ONE. PT RECEIVED PT TODAY AND WAS ADVISED TO SIT IN NEAR BY CHAIR FOR LUNCH. PATIENT IS A 1 PERSON ASSIST. PT HAS A GOOD APPETITE AND WILL EAT MOST OF HIS MEALS. PT MORE ORIENTED IN AFTER NOON AND SLIGHTLY CONVERSATIONAL THOUGH STILL SLUGGISH WITH RESPONSE. PT IN BED AT END OF SHIFT SLEEPING.
[2019-02-14 05:19] LABS: Bun/Creatinine Ratio 19.4 (12.0-20.0); Calcium, Blood 8.8 mg/dL (8.5-10.1); Creatinine, Blood 1.7 mg/dL (0.60-1.20); Potassium, Blood 3.7 mmol/L (3.5-5.5)
--- NOTE | 2019-02-14 05:51 | NUR ---
SHIFT SUMMARY PT DEVELOPMENTALLY DELAYED. NEEDS ASSISTANCE C URINAL. EDEMA SEEMS TO BE IMPROVING. TELE SHOWED A FIB C PVC @ 108 PER PIT SHOVEL OPERATOR BUT AT APPROX 0122 HE HAD AN 8 BEAT RUN OF V TACH THEN RETURNED TO A FIB. NO C/O. HE WAS ABLE TO SLEEP T/O NIGHT. CALL LIGHT IN REACH.
--- NOTE | 2019-02-14 14:06 | NUR ---
Pt is in bed resting and taking some snacks ,he reports doing much better encouraged pt. and offered some prayers Met pt. lying in bed resting, he reports doing much better encouraged pt. and offered some prayers.
--- NOTE | 2019-02-14 15:58 | NUR ---
ALERT. DOES NOT KNOW DATE OR WHY HERE. SLOW TO RESPOND. SOMETIMES IT IS DIFFICUT TO UNDERSTAND PATIENTS WORDS. ONE PERSON ASSIST. ABLE TO FEED SELF. SHINS; SCALEY, ECCHYMOTIC, RED. UNLABORED RESPIRATIONS. DEVELOPMENTALLY DELAYED. IN CHAIR FOR MEALS. INTERMITTENT SLEEPING T/O DAY. NO ACUTE CHANGES. USES URINAL WITHOUT DIFFICULTY. WCTM.
--- NOTE | 2019-02-14 16:27 | NUR ---
ADVISED OF B.P. 99/56 AND RECEIVES BUMEX P.O. AT 1800. OK TO GIVE.
[2019-02-15 05:15] LABS: Bun/Creatinine Ratio 19.9 (12.0-20.0); Calcium, Blood 9.2 mg/dL (8.5-10.1); Creatinine, Blood 1.66 mg/dL (0.60-1.20); Potassium, Blood 4.1 mmol/L (3.5-5.5)
--- NOTE | 2019-02-15 07:27 | NUR ---
SHIFT SUMMARY PT IS A 73 Y/O MALE, ADMITTED FOR CHF EXACERBATION. HE IS A&O X 2-3, WITH A HX OF DEVELOPMENTAL DELAY. HE DENIED ANY ACUTE PAIN, NAUSEA OR SOB, AND SLEPT WELL THROUGH THE NIGHT. PER TELE, PT'S HEART RATE WAS ELEVATED DURING THE NIGHT IN THE 11OS. ALL OTHER VITALS STABLE. NO OTHER ACUTE CHANGES IN PT CONDITION NOTED. REPORT GIVEN TO ONCOMING NURSE.
--- NOTE | 2019-02-15 14:56 | NUR ---
SHIFT SUMMARY NO CHANGES IN ASSESSMENT AT THIS TIME. VSS. PT RESTING IN BED SLEEPING. REQUIRES ONE PERSON TO TRANSFER/URINAL ASSISTANCE. REPORT GIVEN TO EVA BANG WHO DENIES FURTHER QUESTIONS.
--- NOTE | 2019-02-15 15:11 | NUR ---
ASSUMED CARE OF PT AT THIS TIME, REPORT RECEIVED FROM EVA SUTTON. PT LYING IN BED ASLEEP AT THIS TIME.
--- NOTE | 2019-02-15 15:51 | NUR ---
ASSUMED CARE FOR THIS PT AT 1500 FROM HERMAN VELASQUEZ. PT HAS COARSE LUNG SOUNDS. +1 EDEMA IN LOWER EXTREMITIES. DRY, RED, SCALY SKIN ON BILATERAL LOWER EXTREMITIES. AFIB AND RATE OF 113 PER TELLY TECH. PT DENIES PAIN AT THIS TIME.
[2019-02-16 05:00] LABS: Bun/Creatinine Ratio 17.7 (12.0-20.0); Calcium, Blood 8.8 mg/dL (8.5-10.1); Creatinine, Blood 1.64 mg/dL (0.60-1.20)
--- NOTE | 2019-02-16 06:44 | NUR ---
SHIFT SUMMARY PT IS A 73 Y/O MALE, ADMITTED FOR CHF EXACERBATION. HE IS A&O X 3, WITH A HX OF DEVELOPMENTAL DELAY. PT DENIED ANY COMPLAINTS OF PAIN, NAUSEA OR SOB AND SLEPT WELL THROUGH THE NIGHT. VITALS REMAINED STABLE. NO OTHER ACUTE CHANGES IN PT CONDITION NOTED. WILL CONTINUE TO MONITOR AND TREAT PER EMAR.
[2019-02-16] MEDS ORDERED: TERB250 PO (10:41)
== END 2019-02-16 13:34 | disposition home or self-care (01) | DRG 291 ==
LOC: ER 11:03 → MEDS 11:04 → ENPENDDIS 02-16 10:22 → MEDS 02-16 13:34
PROVIDERS: Emergency Medicine; ADMIT Hospitalist
DX: I13.0 Hypertensive heart and chronic kidney disease with heart failure and stage 1 through stage 4 chronic kidney disease, or unspecified chronic kidney disease (principal); I50.33 Acute on chronic diastolic (congestive) heart failure; N17.9 Acute kidney failure, unspecified; I24.8 Other forms of acute ischemic heart disease; I47.2 Ventricular tachycardia; E66.01 Morbid (severe) obesity due to excess calories; I48.91 Unspecified atrial fibrillation; Z87.898 Personal history of other specified conditions; N18.3 Chronic kidney disease, stage 3 (moderate); Z68.34 Body mass index [BMI] 34.0-34.9, adult; D63.1 Anemia in chronic kidney disease
CPT/HCPCS: 36415; 71046; 80048; 80053; 82947; 83880; 84484; 85025; 93005; 93010; 94640; 96365; 96372; 96374; 96375; 96376; 97110; 97116; 97162; 97530; 99285-25; G0378; J1160; J1940; J3475; J3480; J7050

== ENCOUNTER → 2019-03-03 | Outpatient (CLI) | payer MEDICARE, OTHER ==
[~2019-03-03] MED LIST changes: +METO25ER PO; +Micro-K10 MEQ PO; +TERB250 PO
[2019-03-03 19:26] LABS: Hemoglobin 14.2 g/dL (13.5-17.5); Mean Corpuscular HGB 28.5 pg (26.0-34.0); Mean Corpuscular HGB Conc 31.6 g/dL (31.5-36.5); Mean Corpuscular Volume 90 fL (80-100); Mean Platelet Volume 10.9 fL (9.1-12.4); Platelet Count 278 K/mm3 (150-400); RDW Coefficient Variation 13.8 % (11.7-14.2); Red Blood Cell Count 4.99 M/mm3 (4.30-5.90); White Blood Cell Count 6.63 K/mm3 (4.00-11.30)
== END | disposition home or self-care (01) ==
LOC: LAB 17:50 → LAB SHORT 17:50
PROVIDERS: Family Medicine
DX: I13.0 Hypertensive heart and chronic kidney disease with heart failure and stage 1 through stage 4 chronic kidney disease, or unspecified chronic kidney disease (principal); I50.33 Acute on chronic diastolic (congestive) heart failure; N18.9 Chronic kidney disease, unspecified
CPT/HCPCS: 85027

== ENCOUNTER 2019-03-20 13:04 | Inpatient (IN) | payer MEDICARE, OTHER ==
[~2019-03-20] VITALS: Ht 180.3 cm; Wt 111.4 kg
[~2019-03-20 13:04] MED LIST changes: +METO5 PO; -Micro-K10 MEQ PO
[2019-03-20 14:07] LABS: BASOPHILS ABSOLUTE AUTO 0.04 K/mm3 (0.00-0.23); BASOPHILS PERCENT AUTO 0 % (0-2); EOSINOPHILS PERCENT AUTO 1 % (0-6); Hematocrit 46.7 % (37.0-53.0); Hemoglobin 14.8 g/dL (13.5-17.5); IMMATURE GRAN ABSOLUTE AUTO 0.06 K/mm3 (0.00-0.10); IMMATURE GRAN PERCENT AUTO 1 % (0-1); LYMPHOCYTES ABSOLUTE AUTO 1.92 K/mm3 (0.84-5.20); LYMPHOCYTES PERCENT AUTO 17 % (21-46); MONOCYTES PERCENT AUTO 11 % (4-13); Mean Corpuscular HGB 28.2 pg (26.0-34.0); Mean Corpuscular HGB Conc 31.7 g/dL (31.5-36.5); Mean Corpuscular Volume 89 fL (80-100); Mean Platelet Volume 10.9 fL (9.1-12.4); NEUTROPHILS PERCENT AUTO 71 % (41-73); Platelet Count 222 K/mm3 (150-400); RDW Coefficient Variation 13.7 % (11.7-14.2); RDW Standard Deviation 44.7 fL (35.1-46.3); Red Blood Cell Count 5.24 M/mm3 (4.30-5.90); White Blood Cell Count 11.32 K/mm3 (4.00-11.30)
[2019-03-20 14:32] LABS: Albumin, Blood 3.7 g/dL (3.4-5.0); Albumin/Globulin Ratio 0.8 (0.8-1.8); Bilirubin, Total 0.7 mg/dL (0.1-1.0); Bun/Creatinine Ratio 33.9 (12.0-20.0); Calcium, Blood 9.4 mg/dL (8.5-10.1); Creatinine, Blood 3.04 mg/dL (0.60-1.20); Globulin, Blood 4.7 g/dL (2.2-4.0); Potassium, Blood 3.5 mmol/L (3.5-5.5); Total Protein, Blood 8.4 g/dL (6.4-8.2); Troponin I 0.16 ng/mL (0.000-0.040)
[2019-03-20] MEDS ORDERED: POTCHL20ER PO (17:51)
[2019-03-20 18:22] LABS: International Normalized Ratio 1.02; Prothrombin Time Results 10.8 Sec (9.7-11.5)
[2019-03-20 18:27] LABS: Magnesium, Blood 2.9 mg/dL (1.6-2.4)
[2019-03-20 18:41] LABS: Source, Urine Catheter
[2019-03-20 18:52] LABS: Appearance, Urine Clear (Clear); Bilirubin, Urine Neg (Neg); Blood, Urine 1+ (Neg); Color, Urine Yellow (P-Yellow); Glucose Qualitative, Urine Neg (Neg); Ketones, Urine Neg (Neg); Leukocyte Esterase, Urine Neg (Neg); Nitrite, Urine Neg (Neg); Protein, Urine 3+ (Neg); Specific Gravity, Urine 1.005 (1.003-1.022); Urobilinogen, Urine NORM (Normal)
[2019-03-20 19:18] LABS: Bacteria Few /hpf; Squamous Epithelial Cells Rare /hpf (Few)
[2019-03-20 19:53] LABS: PCO2 Arterial 48.1 mmHg (35-45); PO2 Arterial 69.9 mmHg (80-100); pH Blood Arterial 7.44 (7.35-7.45)
[2019-03-20 20:32] LABS: Source, Urine Catheter
[2019-03-20 20:37] LABS: Bilirubin, Urine Neg (Neg); Blood, Urine 1+ (Neg); Glucose Qualitative, Urine Neg (Neg); Ketones, Urine Neg (Neg); Leukocyte Esterase, Urine Neg (Neg); Nitrite, Urine Neg (Neg); Protein, Urine 1+ (Neg); Specific Gravity, Urine 1.005 (1.003-1.022); Urobilinogen, Urine NORM (Normal)
[2019-03-20 20:53] LABS: Appearance, Urine Clear (Clear); Color, Urine Yellow (P-Yellow)
[2019-03-20 20:54] LABS: Bacteria Not Seen /hpf; Red Blood Cells, Urine 0-2 /hpf (0-2); Squamous Epithelial Cells Not Seen /hpf (Few); White Blood Cells, Urine Not Seen /hpf (0-5)
--- NOTE | 2019-03-20 22:09 | NUR ---
Admission/[place] of Care: Patient arrived to unit at 1945 via stretcher, accompanied by ED nurse. Alert and oriented to self and place, confused to time/date and reason for admission, slightly slow to respond. Hearth rhythm shows A-fibb 90's- to low 100's. Systolic BP 60's-80's, MAP's, 60's-70's, NS bolus infusing upon arrival, changed to NS at 100ml/hr after bolus finished. Ellsworth cath placed upon admission, coude catheter inserted without difficulty, draining light yellow clear urine, sample sent to lab per protocol. Large liquid brown BM shortly after admission, sample sent to lab to rule out C-Diff. Dr. Olivo to room to evaluate patient, ordered x1L additional NS bolus. BP's continued to be low, Dr. Olivo. then ordered low dose Levophed gtt through 18g peripheral IV, and changed maintenance fluids to NS at 150ml/hr. Dr. Olivo instructed this nurse to call Dr. Chavez if central line placement is indicated. MAP's increased to 70's after starting Levophed at 2mcg/min, will continue to monitor and titrate as indicated. Repeat lactic acid level of 1.2, decreased from 2.2, awaiting results of stool sample (C-Diff). Will continue to monitor for pain, safety, comfort.
[2019-03-21 03:46] LABS: Adenovirus F 40/41 Not Detected (NOT DETECT); Astrovirus Not Detected (NOT DETECT); Campylobacter Sp Not Detected (NOT DETECT); Cryptosporidium Not Detected (NOT DETECT); Cyclospora Cayetanensis Not Detected (NOT DETECT); E. Coli O157 Not Detected (NOT DETECT); Entamoeba Histolytica Not Detected (NOT DETECT); Enteroaggregative E. coli-EAEC Not Detected (NOT DETECT); Enteropathogenic E. coli-EPEC Not Detected (NOT DETECT); Enterotoxigenic E. coli-ETEC Not Detected (NOT DETECT); Giardia Lamblia Not Detected (NOT DETECT); Norovirus GI/GII Not Detected (NOT DETECT); Plesiomonas Shigelloides Not Detected (NOT DETECT); Rotavirus A Not Detected (NOT DETECT); Salmonella Sp Not Detected (NOT DETECT); Sapovirus Not Detected (NOT DETECT); Shiga Toxin-prod E. coli-STEC Not Detected (NOT DETECT); Shigella/Enteroin E. coli-EIEC Not Detected (NOT DETECT); Vibrio Cholerae Not Detected (NOT DETECT); Vibrio Sp Not Detected (NOT DETECT); Yersinia Enterocolitica Not Detected (NOT DETECT)
[2019-03-21 05:38] LABS: Hematocrit 43.3 % (37.0-53.0); Hemoglobin 13.5 g/dL (13.5-17.5); Mean Corpuscular HGB 28.2 pg (26.0-34.0); Mean Corpuscular HGB Conc 31.2 g/dL (31.5-36.5); Mean Corpuscular Volume 90 fL (80-100); Mean Platelet Volume 10.6 fL (9.1-12.4); Platelet Count 192 K/mm3 (150-400); RDW Coefficient Variation 14.1 % (11.7-14.2); RDW Standard Deviation 46.8 fL (35.1-46.3); Red Blood Cell Count 4.79 M/mm3 (4.30-5.90); White Blood Cell Count 10.13 K/mm3 (4.00-11.30)
[2019-03-21 06:04] LABS: Albumin, Blood 2.9 g/dL (3.4-5.0); Albumin/Globulin Ratio 0.7 (0.8-1.8); Bilirubin, Total 0.5 mg/dL (0.1-1.0); Bun/Creatinine Ratio 29.9 (12.0-20.0); Calcium, Blood 7.8 mg/dL (8.5-10.1); Creatinine, Blood 2.98 mg/dL (0.60-1.20); Globulin, Blood 4.1 g/dL (2.2-4.0); Potassium, Blood 3.2 mmol/L (3.5-5.5)
--- NOTE | 2019-03-21 06:08 | NUR ---
Shift Summary: Patient slept well throughout remainder of shift, easily roused via verbal stimuli, remains oriented to self and place. Neuro checks q2hr throughout shift remain wnl. Continues to deny pain, discomfort, SOB, or dyspnea. Levophed gtt titrated up to 6mcg/min, systolic BP 80's-90's, MAPs 65-70's, making adequate amounts of urine (1,100ml). Peripheral IV's x2 remain patent and intact. Ellsworth cath remains patent and intact, draining light yellow clear urine. Morning lab values showed potassium-3.2, received order per Dr. Chavez for KCl 20meq IV x1. Sleeping at this time. Will continue to monitor until report to day shift RN.
--- NOTE | 2019-03-21 08:03 | NUR ---
DR CHAN IN TO ASSESS PT: DISCUSSED CONTINUING IVF'S. WILL DO ECHO TO F/U ON PRIOR NOTED VEGETATION ON THE AORTIC VALVE. SEE NEW ORDERS.
--- NOTE | 2019-03-21 11:19 | NUR ---
BEGINNING OF SHIFT Assumed care of pt at 0700 with Richard VELASQUEZ. Bedside report recieved from Eric VELASQUEZ. Pt on room air. Levophed infusing at 6 mcg/min at beginning of shift. Levophed has been titrated down to 2 mcg/min at this time. MAP 65 or greater. Pt is alert and oriented to self and place. Speech is slow to respond and sometimes difficult to understand. Pt's caregiver Linnette in to see patient. This RN inquired about wound retirement regimen for BLE. Linnette stated she used "Nystop powder" for BLE. She also stated that BLE are typically wrapped in fox wrap "to help with swelling".
--- NOTE | 2019-03-21 12:05 | NUR ---
Echocardiogram completed.
--- NOTE | 2019-03-21 14:51 | NUR ---
UPDATE Pt was off levophed for about one hour. Levophed restarted at 1 mcg/min and has been titrated up to 6 mcg/min to maintain MAP of 65 or greater. Richard RN currently in room to place PICC line. Plan of care discussed with Dr Buenrostro. Notified provider of levophed titration and current blood pressures. This RN inquired about considering midodrine. Provider stated plan for fluid bolus and albumin.
--- NOTE | 2019-03-21 17:42 | NUR ---
SHIFT SUMMARY PICC line to LUE. Pt currently on 2 mcg/min levophed and 75 mL/hr NS. Pt in bed, eating dinner. Alert and oriented. No events per heart monitor. Pt on room air. Bedbath completed today. Nystatin powder appiled beneath bilateral breasts, and in abdominal and perineal folds. No BM this shift. Will continue to closely monitor until care handoff and bedside report with oncoming RN.
--- NOTE | 2019-03-21 18:46 | NUR ---
MED RECONCILIATION AND ADMIT HX This RN spoke to pt's primary caregiver to obtain this information.
[2019-03-22 04:07] LABS: Hematocrit 37.8 % (37.0-53.0); Hemoglobin 11.9 g/dL (13.5-17.5)
[2019-03-22 04:25] LABS: Albumin, Blood 3.3 g/dL (3.4-5.0); Anion Gap 6 mmol/L (6-16); Blood Urea Nitrogen 65 mg/dL (8-24); Bun/Creatinine Ratio 31.9 (12.0-20.0); CO2, Blood 35 mmol/L (21-32); Calcium, Blood 8.2 mg/dL (8.5-10.1); Chloride, Blood 99 mmol/L (98-108); Creatinine, Blood 2.04 mg/dL (0.60-1.20); Glomerular Filtration Rate 34 (60-); Glucose, Blood 99 mg/dL (70-99); Magnesium, Blood 2.4 mg/dL (1.6-2.4); Phosphorus, Blood 3.1 mg/dL (2.5-4.9); Potassium, Blood 2.6 mmol/L (3.5-5.5); Sodium, Blood 140 mmol/L (136-145)
--- NOTE | 2019-03-22 06:18 | NUR ---
SHIFT SUMMARY VERY UNEVENTFUL NIGHT. PT SLEPT THROUGHOUT NIGHT. ATTEMPTED TO HAVE BM TWICE, BUT ONLY PASSED GAS. PT HAD TROUBLE KEEPING SAT'S ABOVE 94%, AND MAY HAVE A DEGREE OF ELANA, BUT DID END UP MAINTAINING SAT'S WITHOUT NEED FOR OXYGEN. CURRENT INFUSIONS: NS 75ML/HR, KCl BAG 1/2 RUNNING AT 50ML.HR, AND LEVOPHED ON STANDBY. MAP'S > 65 CONSISTENTLY THROUGHOUT NIGHT. UOP = 2.3L. BED LOW AND LOCKED; CALL LIGHT WITHIN REACH.
--- NOTE | 2019-03-22 08:35 | NUR ---
BEGINNING OF SHIFT Assumed care of pt at 0700 with Jamie VELASQUEZ. Bedside report receive from Emelyn VELASQUEZ. Pt on room air. Afib per monitor with rate averaging between 105 and 115. Bundle branch block present. Levophed off. Maintenance fluids and KCl infusing to LALI PICC. SBP ranging from 80 to 110. MAP consistently greater than 65. Pt alert and oriented to self. Plan of care discussed with Dr Buenrostro. Discussed pt's HR and BP. Pt is now PCU status.
--- NOTE | 2019-03-22 12:18 | NUR ---
UPDATE Pt OOB into recliner. Tolerated activity well. Again discussed plan of care with Dr Buenrostro. Provider placed orders for albumin. Pt eating lunch. Denies need at this time.
--- NOTE | 2019-03-22 13:47 | NUR ---
STEPHANIA This RN spoke to Dr Buenrostro regarding SBP in 70s and pt's MAP. Orders given for charlotte.
[2019-03-22 15:47] LABS: Bun/Creatinine Ratio 30.4 (12.0-20.0); Calcium, Blood 8.4 mg/dL (8.5-10.1); Creatinine, Blood 1.94 mg/dL (0.60-1.20); Potassium, Blood 3.5 mmol/L (3.5-5.5)
--- NOTE | 2019-03-22 17:21 | NUR ---
SHIFT SUMMARY No acute changes since last note. Pt has been sitting up in recliner for majority of day. Does not attempt to ambulate independently. O2 sats 90% or greater RA. A-Fib per monitor with rate ranging between 115-125, Dr Buenrostro aware. NS at 75 mL/hr infusing into LALI PICC. Labs drawn from PICC line. 50 grams of albumin given this shift. 2.5 mg midodrine given. Pt able to communicate needs. Ellsworth catheter removed. Pt has had one incontinent void into attends since removal. Will continue to closely monitor until care handoff and bedside report with oncoming RN.
--- NOTE | 2019-03-22 19:32 | NUR ---
ASSUMED CARE RECEIVE REPORT FROM LIBRA. PT IS AWAKE, ALERT AND ORIENTED TO SELF, PLACE AND TIME. PT IS PAIN FREE. RECEIVING NS 75ML/HR. URINAL AT BEDSIDE. BED LOW AND LOCKED, CALL LIGHT WITHIN REACH.
[2019-03-23 04:16] LABS: Hematocrit 35.3 % (37.0-53.0); Mean Corpuscular HGB 28.9 pg (26.0-34.0); Mean Corpuscular HGB Conc 31.2 g/dL (31.5-36.5); Platelet Count 134 K/mm3 (150-400); RDW Coefficient Variation 14.6 % (11.7-14.2); RDW Standard Deviation 48.8 fL (35.1-46.3); White Blood Cell Count 6.82 K/mm3 (4.00-11.30)
[2019-03-23 04:25] LABS: Mean Corpuscular Volume 93 fL (80-100)
[2019-03-23 04:34] LABS: Albumin, Blood 3.5 g/dL (3.4-5.0); Anion Gap 6 mmol/L (6-16); Blood Urea Nitrogen 48 mg/dL (8-24); Bun/Creatinine Ratio 29.6 (12.0-20.0); CO2, Blood 31 mmol/L (21-32); Calcium, Blood 8.5 mg/dL (8.5-10.1); Chloride, Blood 103 mmol/L (98-108); Creatinine, Blood 1.62 mg/dL (0.60-1.20); Glomerular Filtration Rate 44 (60-); Glucose, Blood 100 mg/dL (70-99); Magnesium, Blood 2.3 mg/dL (1.6-2.4); Phosphorus, Blood 2.6 mg/dL (2.5-4.9); Potassium, Blood 3.4 mmol/L (3.5-5.5); Sodium, Blood 140 mmol/L (136-145)
--- NOTE | 2019-03-23 06:03 | NUR ---
SHIFT SUMMARY PT HAD UNEVENTFUL NIGHT, AND SLEPT THROUGHOUT NIGHT. CURRENTLY INFUSING NS AT 75ML/HR. PT ABLE TO VOID IN URINAL, HAD ABOUT 600ML OUT. NO BM'S OVERNIGHT, AFEBRILE. PT HAD UNREMARKABLE MORNING LABS. BED LOW AND LOCKED, CALL LIGHT WITHIN REACH.
--- NOTE | 2019-03-23 07:30 | NUR ---
Recieved report from Jessi VELASQUEZ. Patient resting in bed with HOB at 15 degrees. He awakens easily to verbal stimuli and speech soft and garbled, but understandable. Breakfast is here and get him up to shair with one assist with lines and set up for breakfast. He is on RA and sats in the upper 90%'s. He denies any current pain. He has PICC line in LALI and is infusing NS at 75ml/hr. He calls and uses urinal appropriately.
--- NOTE | 2019-03-23 09:46 | NUR ---
He continues up in chair and ate 100% of breakfast and fluids and got him cup of coffee. He tolerated PO meds with water. He denies any needs or pain. Call light within reach.
--- NOTE | 2019-03-23 11:28 | NUR ---
Patient used urinal appropriately and had 350ml yellow urine out. He remains up inchair on RA. Dr. Redman in room with patient and will be med with tele.
--- NOTE | 2019-03-23 13:11 | NUR ---
Patient remains up in chair and on RA. He denies any needs or pain. He [id number]% of lunch and 240ml of fluids and is currently resting in the chair. HR 116 and systolic has been in the low 100-117.
--- NOTE | 2019-03-23 15:00 | NUR ---
ASSUMED CARE: RECEIVED REPORT FROM MAEVE GIBSON RN. PT SITTING UP IN RECLINER IN THE ROOM. NO ACUTE DISTRESS NOTED. PT APPEARS TO BE WATCHING TV. CALL LIGHT WITHIN REACH. WILL CONTINUE TO MONITOR AND ASSESS FURTHER.
--- NOTE | 2019-03-23 18:35 | NUR ---
SHIFT SUMMARY: NO ACUTE DISTRESS NOTED SINCE ASSUMING CARE OF PT. PT HAS USED THE URINAL INDEPENDENTLY. TRANSFERED FROM RECLINER TO BED WITH SBA AND TOLLERATED WELL. HR IS CURRENTLY NOTED TO BE 117. NO S/S OF DISTRESS. CALL LIGHT IN REACH. BED IN LOWEST POSSITION.
--- NOTE | 2019-03-23 19:30 | NUR ---
ASSUMED CARE RECIEVED REPORT MARCIA. PT AWAKE, AND ALERT/ORIENTED TO BASELINE. PT COMPLAINS OF NO PAIN, N/V, OR ANY DISTRESS AT THIS MOMENT. HR IN LOW 100'S-120. BP STABLE. AFEBRILE. BED LOW AND LOCKED. CALL LIGHT WITHIN REACH.
--- NOTE | 2019-03-23 20:36 | NUR ---
UPDATE TO ASHLEE CALLED [facility] REGARDING AFIB RVR (HR 110'S-140'S, BP 109/62 MAP 73, NO CHEST PAIN, DIAPHORESIS, N/V, N/T, OR COMPLAINTS FROM PT). DUE TO SOFT PRESSURES, NO BETA BLOCKERS OR OTHER ORDERS AT THIS TIME.
[2019-03-24 04:42] LABS: BASOPHILS ABSOLUTE AUTO 0.02 K/mm3 (0.00-0.23); BASOPHILS PERCENT AUTO 0 % (0-2); EOSINOPHILS ABSOLUTE AUTO 0.19 K/mm3 (0.00-0.68); EOSINOPHILS PERCENT AUTO 3 % (0-6); Hematocrit 38.2 % (37.0-53.0); Hemoglobin 11.8 g/dL (13.5-17.5); IMMATURE GRAN ABSOLUTE AUTO 0.02 K/mm3 (0.00-0.10); IMMATURE GRAN PERCENT AUTO 0 % (0-1); LYMPHOCYTES ABSOLUTE AUTO 1.16 K/mm3 (0.84-5.20); LYMPHOCYTES PERCENT AUTO 18 % (21-46); MONOCYTES ABSOLUTE AUTO 0.54 K/mm3 (0.16-1.47); MONOCYTES PERCENT AUTO 8 % (4-13); Mean Corpuscular HGB 28.1 pg (26.0-34.0); Mean Corpuscular HGB Conc 30.9 g/dL (31.5-36.5); Mean Corpuscular Volume 91 fL (80-100); Mean Platelet Volume 10.8 fL (9.1-12.4); NEUTROPHILS ABSOLUTE AUTO 4.68 K/mm3 (1.96-9.15); NEUTROPHILS PERCENT AUTO 71 % (41-73); Platelet Count 140 K/mm3 (150-400); RDW Coefficient Variation 14.8 % (11.7-14.2); RDW Standard Deviation 48.8 fL (35.1-46.3); White Blood Cell Count 6.61 K/mm3 (4.00-11.30)
[2019-03-24 04:58] LABS: Albumin, Blood 3.2 g/dL (3.4-5.0); Anion Gap 5 mmol/L (6-16); Blood Urea Nitrogen 40 mg/dL (8-24); Bun/Creatinine Ratio 28.6 (12.0-20.0); CO2, Blood 31 mmol/L (21-32); Calcium, Blood 8.7 mg/dL (8.5-10.1); Chloride, Blood 105 mmol/L (98-108); Glomerular Filtration Rate 52 (60-); Glucose, Blood 102 mg/dL (70-99); Magnesium, Blood 2.2 mg/dL (1.6-2.4); Phosphorus, Blood 2.2 mg/dL (2.5-4.9); Potassium, Blood 3.7 mmol/L (3.5-5.5); Sodium, Blood 141 mmol/L (136-145)
--- NOTE | 2019-03-24 06:44 | NUR ---
SHIFT SUMMARY PT HAD UNEVENTFUL NIGHT; AND SLEPT THROUGHOUT. CURRENTLY INFUSING NS AT 75ML/HR. PT HAD 1 BM OVER NIGHT IN BEDSIDE COMMODE. PT WAS ABLE TO VOID IN URINAL ON HIS OWN. BP STABLE ALL NIGHT. REPOSITIONS SELF. BED LOW AND LOCKED, CALL LIGHT WITHIN REACH.
--- NOTE | 2019-03-24 07:34 | NUR ---
ASSUMED CARE: PT RESTING IN BED AT THIS TIME. ALERT AND ORIENTED. DENIES NEEDS OR CONCERNS.
--- NOTE | 2019-03-24 11:58 | NUR ---
DR ALFRED AWARE OF PT'S INCREASED HR. SEE NEW ORDERS. CURRENTLY AFIB IN 140S
--- NOTE | 2019-03-24 14:01 | NUR ---
Met pt sitting up in a chair relaxed he reports doing much better encouraged pt offered prayersm .
--- NOTE | 2019-03-24 14:14 | NUR ---
SPOKE WITH DR ALFRED WITH UPDATE ON PT'S PROGRESS AFTER BOLUS AND DIGOXIN DOSE. AWARE THAT PT'S HR TOUCHES 140S AT TIMES BUT MOSTLY 1TEENS TO 120S. STATES LONG HE DOES NOT SUSTAIN 140S HE CAN BE MED WITH TELE STATUS
--- NOTE | 2019-03-24 14:57 | NUR ---
REPORT CALLED TO LB VELASQUEZ. PT TRANSFERRED TO ROOM 328 VIA WHEELCHAIR BY HOSPITAL STAFF.
--- NOTE | 2019-03-24 16:55 | NUR ---
Per admit trigger, I met with Mr. Louise to offer information regarding Advanced Directive. He appeared confused, and was unable to grasp the implications of this document. He said he lives in foster care, but could not tell me for how long or why. He also states that he just moved to [place] a month ago. He could not remember from where. He is [employer] and will be followed by Father Eamon throughout hospitalization. I do not know what Mr. Louise's baseline is mentally. But, he clearly was not able to understand this information today. I will remain available.
--- NOTE | 2019-03-24 18:12 | NUR ---
NOTIFIED BY [facility] PATIENT WAS TRENDING UP INTO THE 150S, AVERAGING 139. DR. ALFRED NOTIFIED. ORDERED GIVEN FOR METOPROLOL XL 25 MG BID FIRST DOSE TO START NOW. PATIENT SITTING UP IN BED EATING. RN WILL CONTINUE TO MONITOR.
--- NOTE | 2019-03-24 18:44 | NUR ---
SHIFT SUMMARY PATIENT A&O X4. TRANSFERED FROM ICU. DENIES ANY PAIN, SOB, OR NAUSEA. TELE IN PLACE. PATIENT RESTED FOR MOST OF THE SHIFT. NS @ 50 RUNNING. PICC TO RIGHT UPPER ARM IN PLACE. AROUND 1800 ASSOCIATE PROFESSOR OF ENGINEERING NOTIFIED RN THAT PATIENT WAS TRENDING INTO THE 150S, AVERAGING 139. RN NOTIFIED DR. VELASQUEZ. MEDICATED WITH METOPROLOL XL 25 MG. DISCOLORATION TO BLE WITH MULTIPLE WOUND/SKIN TEARS. PICTURES TAKEN AND PLACED IN CHART. MEPILEX DRESSING PLACED TO SKIN TEAR ON LEFT LOWER LEG. NO OTHER ACUTE CHANGES THIS SHIFT. REPORT TO BE GIVEN TO [employer] ATTENDANT RN.
[2019-03-25 05:55] LABS: Hematocrit 38.1 % (37.0-53.0); Hemoglobin 11.6 g/dL (13.5-17.5)
[2019-03-25 06:25] LABS: Albumin, Blood 3.1 g/dL (3.4-5.0); Anion Gap 4 mmol/L (6-16); Blood Urea Nitrogen 29 mg/dL (8-24); Bun/Creatinine Ratio 19.9 (12.0-20.0); CO2, Blood 31 mmol/L (21-32); Calcium, Blood 8.9 mg/dL (8.5-10.1); Chloride, Blood 107 mmol/L (98-108); Creatinine, Blood 1.46 mg/dL (0.60-1.20); Glomerular Filtration Rate 50 (60-); Glucose, Blood 100 mg/dL (70-99); Magnesium, Blood 2.1 mg/dL (1.6-2.4); Phosphorus, Blood 2.7 mg/dL (2.5-4.9); Potassium, Blood 4.1 mmol/L (3.5-5.5); Sodium, Blood 142 mmol/L (136-145)
[2019-03-25 06:32] LABS: Digoxin (Lanoxin) 0.51 ug/mL (0.80-2.00)
--- NOTE | 2019-03-25 07:47 | NUR ---
03/25/19 0530 SLEPT WELL. CALLS APPROPRIATELY TO USE BSC FOR BM LAST EVENING. USES URINAL WELL. DENIES ANY S/S OR DISCOMFORT. HAS HAD HIGH HEART RATE AND MD IS AWARE PER DAY SHIFT RN. STARTED NEW HEART MED LAST NIGHT. VITALS OTHERWISE WNL. UNEVENTFUL NIGHT.
--- NOTE | 2019-03-25 14:41 | NUR ---
Pt. is lying in bed resting and is doing much better offrered lprayers for the pt.
--- NOTE | 2019-03-25 16:56 | NUR ---
SHIFT SUMMARY. A&OX3, SBA TO BATHROOM, PT CALLS APPROPRIATLEY, NO SAFETY CONCERNS. PT DENIES PAIN, SOB, N/V. PT RECIEVED SHOWER THIS AFTERNOON, DRESSINGS TO BLE CLEANSED AND CHANGED AFTERWARDS. IV FLUIDS D/C'D THIS AM. NO NEW CHANGES OR CONCERNS.
--- NOTE | 2019-03-26 05:17 | NUR ---
SHIFT SUMMARY NO ACUTE CHANGES TO PRESENT THIS SHIFT. PT SLEEPING AT START OF SHIFT AND THRU OUT THE NIGHT. PT DOES WAKE EASILY FOR CARE AND GOES BACK TO SLEEP. USES URINAL AT BS. PER SHIFT REPORT, PT DEVELOPMENTALLY DELAYED AND SOMETIMES RESPONDS VERY SLOWLY. VENOUS STASIS TO BLE'S WITH DRK RED, PEELING SKIN, SCABS, AND DRSG'S TO OPEN AREAS. FUNGUS TO R THUMB AND INDEX FINGERNAILS. A-FIB WITH BBB AND PVC'S PER TELE MX. PT STARTED ON METOPROLOL FOR RATE CONTROL. DIGOXIN TO BE INCREASED X2 DAYS. NO S/SX OF DISTRESS NOTED OR REPORTED. NO C/O. DENINED NEEDS. CALL LT IN REACH.
[2019-03-26 05:53] LABS: Hematocrit 37.8 % (37.0-53.0); Hemoglobin 11.6 g/dL (13.5-17.5)
[2019-03-26 06:22] LABS: Albumin, Blood 3.2 g/dL (3.4-5.0); Anion Gap 4 mmol/L (6-16); Blood Urea Nitrogen 24 mg/dL (8-24); Bun/Creatinine Ratio 16.8 (12.0-20.0); CO2, Blood 30 mmol/L (21-32); Calcium, Blood 9.2 mg/dL (8.5-10.1); Chloride, Blood 105 mmol/L (98-108); Creatinine, Blood 1.43 mg/dL (0.60-1.20); Glomerular Filtration Rate 51 (60-); Glucose, Blood 89 mg/dL (70-99); Magnesium, Blood 1.9 mg/dL (1.6-2.4); Phosphorus, Blood 2.7 mg/dL (2.5-4.9); Potassium, Blood 4.4 mmol/L (3.5-5.5); Sodium, Blood 139 mmol/L (136-145)
[2019-03-26] MEDS ORDERED: METO25ER PO (11:46)
[2019-03-26] MEDS ORDERED: MIDO5 PO (11:48)
[2019-03-26] MEDS ORDERED: Micro-K10 MEQ PO (11:48)
[2019-03-26] MEDS ORDERED: Fibercon625 MG PO (11:49)
[2019-03-26] MEDS ORDERED: Florastor250 MG PO (11:49)
[2019-03-26] MEDS ORDERED: FURO40 PO (11:50)
[2019-03-26] MEDS ORDERED: DIGOX125 MCG PO (11:50)
--- NOTE | 2019-03-26 12:26 | NUR ---
NOTIFIED DR. HODGES PT HAS A PICC. DR. HODGES SAID PUT IN ORDER TO D/C PICC. PT DISCHARGING. NO OTHER NEW ORDERS AT THIS TIME.
--- NOTE | 2019-03-26 13:52 | NUR ---
D/C INSTRUCTIONS PROVIDED AND EXPLAINED TO PT. PICC DC'D BY EVA ABDUL. PT D/C VIA WHEELCHAIR WITH TRANSPORT.
--- NOTE | 2019-03-26 14:23 | NUR ---
Met pt. in bed resting he reports to be doiing well and may go home today or tegan prayed and encouraged him
--- NOTE | 2019-03-26 14:36 | NUR ---
Met pt in bed relaxed he is doing well offered some prayers and encouraged,
== END 2019-03-26 13:15 | disposition home health service (06) | DRG 682 ==
LOC: ER 13:04 → ICUE 17:58 → ICUW 17:58 → ICUE 18:59 → MEDS 03-24 14:51 → ENPENDDIS 03-26 11:03 → EDPENDDIS 03-26 11:03 → MEDS 03-26 13:15
PROVIDERS: Emergency Medicine; Internal Medicine Nephrology; Nurse Practitioner Acute Care; ADMIT Internal Medicine
PROC: 5A1935Z Respiratory Ventilation, Less than 24 Consecutive Hours (ICD-10-PCS; principal; 2019-03-20)
DX: N17.9 Acute kidney failure, unspecified (principal); R57.1 Hypovolemic shock; I13.0 Hypertensive heart and chronic kidney disease with heart failure and stage 1 through stage 4 chronic kidney disease, or unspecified chronic kidney disease; I50.32 Chronic diastolic (congestive) heart failure; E87.2 Acidosis; E87.3 Alkalosis; E87.6 Hypokalemia; R62.50 Unspecified lack of expected normal physiological development in childhood; N18.3 Chronic kidney disease, stage 3 (moderate); R19.7 Diarrhea, unspecified; E66.01 Morbid (severe) obesity due to excess calories; I99.9 Unspecified disorder of circulatory system; I48.2 Chronic atrial fibrillation; Z79.01 Long term (current) use of anticoagulants; Z87.891 Personal history of nicotine dependence; Z68.33 Body mass index [BMI] 33.0-33.9, adult; D63.8 Anemia in other chronic diseases classified elsewhere; I95.89 Other hypotension; E83.39 Other disorders of phosphorus metabolism
CPT/HCPCS: 36415; 36569; 36600; 51701; 51702; 70450; 71045; 76770; 80048; 80053; 80069; 80162; 81001; 82533; 82803; 82947; 83605; 83735; 83880; 84145; 84443; 84484; 85014; 85018; 85025; 85027; 85610; 85730; 86850; 86900; 86901; 87040; 87493; 87507; 92610; 93005; 93010; 93308; 93321; 94760; 96360; 97162; 97530; 99285-25; C1751; J0690; J1644; J1940; J3480; J7030; J7040; J7060; P9046

== ENCOUNTER → 2019-04-29 | Outpatient (CLI) | payer MEDICARE, OTHER ==
[~2019-04-29] MED LIST changes: +DIGOX125 MCG PO; +FURO40 PO; +Fibercon625 MG PO; +Florastor250 MG PO; +MIDO5 PO; +Micro-K10 MEQ PO; +POTCHL20ER PO
[2019-04-30 12:07] LABS: Creatinine Urine 29.6 mg/dL (27.00-270.00); Protein, Urine Quantitative 7.9 mg/dL (0.0-11.9)
[2019-04-30 12:09] LABS: Microalbumin, Urine Quant. 13.4 mg/L (0.000-20.000)
== END | disposition home or self-care (01) ==
LOC: LAB 07:00 → LAB SHORT 07:00 → LAB FUT 04-21 15:30
PROVIDERS: Internal Medicine Nephrology
DX: Z79.01 Long term (current) use of anticoagulants (principal); Z51.81 Encounter for therapeutic drug level monitoring; N18.3 Chronic kidney disease, stage 3 (moderate); D63.1 Anemia in chronic kidney disease; N25.81 Secondary hyperparathyroidism of renal origin; E55.9 Vitamin D deficiency, unspecified; E78.00 Pure hypercholesterolemia, unspecified; D51.8 Other vitamin B12 deficiency anemias; D52.8 Other folate deficiency anemias; D50.9 Iron deficiency anemia, unspecified; R76.9 Abnormal immunological finding in serum, unspecified; R94.5 Abnormal results of liver function studies; R94.6 Abnormal results of thyroid function studies
CPT/HCPCS: 81050; 82043; 82570; 84156

== ENCOUNTER → 2019-04-30 | Outpatient (CLI) | payer MEDICARE, OTHER | END | disposition home or self-care (01) | LOC: LAB 10:03 → LAB SHORT 10:03 | DX: Z79.01 Long term (current) use of anticoagulants (principal); Z51.81 Encounter for therapeutic drug level monitoring; N18.3 Chronic kidney disease, stage 3 (moderate); D63.1 Anemia in chronic kidney disease; N25.81 Secondary hyperparathyroidism of renal origin; E55.9 Vitamin D deficiency, unspecified; E78.00 Pure hypercholesterolemia, unspecified; D51.8 Other vitamin B12 deficiency anemias; D52.8 Other folate deficiency anemias; D50.9 Iron deficiency anemia, unspecified; R76.9 Abnormal immunological finding in serum, unspecified; R94.5 Abnormal results of liver function studies; R94.6 Abnormal results of thyroid function studies | CPT/HCPCS: 86335 ==

== ENCOUNTER → 2020-09-14 | Outpatient (CLI) | payer MEDICARE, OTHER | END | disposition home or self-care (01) | LOC: LAB SHORT 07:54 → PLD 07:54 | DX: C44.619 Basal cell carcinoma of skin of left upper limb, including shoulder (principal) | CPT/HCPCS: 88305 ==

== ENCOUNTER → 2020-11-25 | Outpatient (CLI) | payer MEDICARE, OTHER | END | disposition home or self-care (01) | LOC: LAB SHORT 07:59 → LAB 07:59 | DX: C44.619 Basal cell carcinoma of skin of left upper limb, including shoulder (principal); L57.8 Other skin changes due to chronic exposure to nonionizing radiation | CPT/HCPCS: 88305 ==

== ENCOUNTER 2021-12-28 07:58 | Emergency (ER) | payer MEDICARE, OTHER ==
[~2021-12-28] VITALS: Ht 170.2 cm; Wt 81.7 kg
[2021-12-28 09:55] LABS: Bun/Creatinine Ratio 14.2 (12.0-20.0); Calcium, Blood 9.2 mg/dL (8.5-10.1); Creatinine, Blood 1.48 mg/dL (0.60-1.20); Potassium, Blood 4.7 mmol/L (3.5-5.5)
[2021-12-28] MEDS ORDERED: DOXY100 PO (09:56)
[2021-12-28 10:01] LABS: BASOPHILS ABSOLUTE AUTO 0.02 K/mm3 (0.00-0.23); BASOPHILS PERCENT AUTO 0 % (0-2); EOSINOPHILS PERCENT AUTO 0 % (0-6); Hematocrit 45.3 % (37.0-53.0); Hemoglobin 14.4 g/dL (13.5-17.5); IMMATURE GRAN ABSOLUTE AUTO 0.03 K/mm3 (0.00-0.10); IMMATURE GRAN PERCENT AUTO 0 % (0-1); LYMPHOCYTES ABSOLUTE AUTO 0.66 K/mm3 (0.84-5.20); LYMPHOCYTES PERCENT AUTO 7 % (21-46); MONOCYTES ABSOLUTE AUTO 0.97 K/mm3 (0.16-1.47); MONOCYTES PERCENT AUTO 11 % (4-13); Mean Corpuscular HGB 29.1 pg (26.0-34.0); Mean Corpuscular HGB Conc 31.8 g/dL (31.5-36.5); Mean Corpuscular Volume 92 fL (80-100); Mean Platelet Volume 9.6 fL (9.1-12.4); NEUTROPHILS ABSOLUTE AUTO 7.28 K/mm3 (1.96-9.15); NEUTROPHILS PERCENT AUTO 81 % (41-73); Platelet Count 203 K/mm3 (150-400); RDW Coefficient Variation 13.6 % (11.7-14.2); RDW Standard Deviation 45.9 fL (35.1-46.3); Red Blood Cell Count 4.95 M/mm3 (4.30-5.90); White Blood Cell Count 8.96 K/mm3 (4.00-11.30)
== END 2021-12-28 11:27 | disposition home or self-care (01) ==
LOC: ER 07:58
PROVIDERS: Emergency Medicine
DX: R05.9 Cough, unspecified (principal); I48.91 Unspecified atrial fibrillation; I13.0 Hypertensive heart and chronic kidney disease with heart failure and stage 1 through stage 4 chronic kidney disease, or unspecified chronic kidney disease; N18.30 Chronic kidney disease, stage 3 unspecified; I50.32 Chronic diastolic (congestive) heart failure; Z79.899 Other long term (current) drug therapy; W18.30XA Fall on same level, unspecified, initial encounter
CPT/HCPCS: 36415; 71045; 80048; 85025; 99283-25

== ENCOUNTER → 2024-08-01 | Outpatient (CLI) | payer MEDICARE, OTHER ==
[~2024-08-01] MED LIST changes: +DOXY100 PO
[2024-08-01 15:43] LABS: BASOPHILS ABSOLUTE AUTO 0.04 K/mm3 (0.00-0.23); BASOPHILS PERCENT AUTO 1 % (0-2); EOSINOPHILS PERCENT AUTO 1 % (0-6); Hematocrit 48.6 % (37.0-53.0); Hemoglobin 15.7 g/dL (13.5-17.5); IMMATURE GRAN ABSOLUTE AUTO 0.03 K/mm3 (0.00-0.10); IMMATURE GRAN PERCENT AUTO 0 % (0-1); LYMPHOCYTES ABSOLUTE AUTO 1.88 K/mm3 (0.84-5.20); LYMPHOCYTES PERCENT AUTO 26 % (21-46); MONOCYTES ABSOLUTE AUTO 0.57 K/mm3 (0.16-1.47); MONOCYTES PERCENT AUTO 8 % (4-13); Mean Corpuscular HGB 29.7 pg (26.0-34.0); Mean Corpuscular HGB Conc 32.3 g/dL (31.5-36.5); Mean Corpuscular Volume 92 fL (80-100); Mean Platelet Volume 10.4 fL (9.1-12.4); NEUTROPHILS ABSOLUTE AUTO 4.51 K/mm3 (1.96-9.15); NEUTROPHILS PERCENT AUTO 63 % (41-73); Platelet Count 186 K/mm3 (150-400); RDW Coefficient Variation 13.2 % (11.7-14.2); RDW Standard Deviation 44.9 fL (35.1-46.3); Red Blood Cell Count 5.29 M/mm3 (4.30-5.90); White Blood Cell Count 7.13 K/mm3 (4.00-11.30)
[2024-08-01 15:59] LABS: Alanine Aminotransfer (ALT/SGP 14 U/L (12-78); Albumin, Blood 3.8 g/dL (3.4-5.0); Albumin/Globulin Ratio 0.9 (0.8-1.8); Alk Phos 46 U/L (50-136); Anion Gap 7 mmol/L (3-11); Aspartate Aminotrans (AST/SGOT 13 U/L (12-37); Bilirubin, Total 0.6 mg/dL (0.1-1.0); Blood Urea Nitrogen 29 mg/dL (8-24); Bun/Creatinine Ratio 19.2 (12.0-20.0); CHOL/HDL RATIO 4.8; CO2, Blood 33 mmol/L (21-32); Calcium, Blood 9.5 mg/dL (8.5-10.1); Chloride, Blood 106 mmol/L (98-108); Cholesterol 138 mg/dL (50-200); Creatinine, Blood 1.51 mg/dL (0.60-1.20); Globulin, Blood 4.3 g/dL (2.2-4.0); Glomerular Filtration Rate 46 (60-); Glucose, Blood 88 mg/dL (70-99); HDL Cholesterol 29 mg/dL (>39); LDL/HDL RATIO 2.9; Low Density Lipoprotein Chol 85 mg/dL (0-110); Potassium, Blood 4.6 mmol/L (3.5-5.5); Sodium, Blood 141 mmol/L (136-145); Total Protein, Blood 8.1 g/dL (6.4-8.2); Triglycerides 118 mg/dL (30-160); Very Low Density Lipoprot Chol 23 mg/dL (6-32)
[2024-08-01 16:07] LABS: Digoxin (Lanoxin) 1.06 ug/mL (0.80-2.00)
== END ==
LOC: LAB SHORT 14:56 → LAB 14:56
PROVIDERS: Family Medicine
DX: I48.20 Chronic atrial fibrillation, unspecified (principal); E21.0 Primary hyperparathyroidism; Z79.01 Long term (current) use of anticoagulants; I50.22 Chronic systolic (congestive) heart failure; Z79.899 Other long term (current) drug therapy
CPT/HCPCS: 80053; 80061; 80162; 82306; 83880; 83970; 85025

== ENCOUNTER → 2025-01-14 | Outpatient (CLI) | payer MEDICARE, OTHER ==
[2025-01-14 16:28] LABS: BASOPHILS ABSOLUTE AUTO 0.03 K/mm3 (0.00-0.23); BASOPHILS PERCENT AUTO 0 % (0-2); EOSINOPHILS ABSOLUTE AUTO 0.13 K/mm3 (0.00-0.68); EOSINOPHILS PERCENT AUTO 2 % (0-6); Hematocrit 49.4 % (37.0-53.0); Hemoglobin 15.9 g/dL (13.5-17.5); IMMATURE GRAN ABSOLUTE AUTO 0.03 K/mm3 (0.00-0.10); IMMATURE GRAN PERCENT AUTO 0 % (0-1); LYMPHOCYTES ABSOLUTE AUTO 1.71 K/mm3 (0.84-5.20); LYMPHOCYTES PERCENT AUTO 21 % (21-46); MONOCYTES ABSOLUTE AUTO 0.57 K/mm3 (0.16-1.47); MONOCYTES PERCENT AUTO 7 % (4-13); Mean Corpuscular HGB Conc 32.2 g/dL (31.5-36.5); Mean Corpuscular Volume 93 fL (80-100); Mean Platelet Volume 10.7 fL (9.1-12.4); NEUTROPHILS ABSOLUTE AUTO 5.51 K/mm3 (1.96-9.15); NEUTROPHILS PERCENT AUTO 69 % (41-73); Platelet Count 218 K/mm3 (150-400); RDW Coefficient Variation 13.5 % (11.7-14.2); RDW Standard Deviation 45.7 fL (35.1-46.3); White Blood Cell Count 7.98 K/mm3 (4.00-11.30)
[2025-01-14 17:29] LABS: Alanine Aminotransfer (ALT/SGP 18 U/L (12-78); Albumin, Blood 3.8 g/dL (3.4-5.0); Alk Phos 51 U/L (50-136); Anion Gap 8 mmol/L (3-11); Aspartate Aminotrans (AST/SGOT 16 U/L (12-37); Bilirubin, Total 0.6 mg/dL (0.1-1.0); Blood Urea Nitrogen 23 mg/dL (8-24); Bun/Creatinine Ratio 16.8 (12.0-20.0); CO2, Blood 32 mmol/L (21-32); Calcium, Blood 9.6 mg/dL (8.5-10.1); Chloride, Blood 104 mmol/L (98-108); Creatinine, Blood 1.37 mg/dL (0.60-1.20); Digoxin (Lanoxin) 0.93 ug/mL (0.80-2.00); Globulin, Blood 3.7 g/dL (2.2-4.0); Glomerular Filtration Rate 52 (60-); Glucose, Blood 83 mg/dL (70-99); Potassium, Blood 4.7 mmol/L (3.5-5.5); Sodium, Blood 139 mmol/L (136-145); Total Protein, Blood 7.5 g/dL (6.4-8.2)
[2025-01-18 13:07] LABS: 25-HYDROXYVITAMIN D2 <1.0 ng/mL; 25-HYDROXYVITAMIN D2 D3 TOTAL 61.3 ng/mL (30.0-80.0); 25-HYDROXYVITAMIN D3 61.3 ng/mL
== END ==
LOC: LAB 15:44 → LAB SHORT 15:44
PROVIDERS: Family Medicine
DX: I13.0 Hypertensive heart and chronic kidney disease with heart failure and stage 1 through stage 4 chronic kidney disease, or unspecified chronic kidney disease (principal); N18.9 Chronic kidney disease, unspecified; I50.22 Chronic systolic (congestive) heart failure; E67.3 Hypervitaminosis D; N25.81 Secondary hyperparathyroidism of renal origin
CPT/HCPCS: 80053; 80162; 82306; 83970; 85025